=== PATIENT | female | born 1945 | race Caucasian/White ===

== ENCOUNTER 2021-01-31 12:23 | Emergency (ER) | payer MEDICARE, MEDICAID ==
[2021-01-31] MEDS ORDERED: Sodium Chloride 0.9% 10 ML Syringe FLUSH PRN (12:48)
--- NOTE | 2021-01-31 12:48 | EDM.PDOC ---
ED HPI GENERAL MEDICAL PROBLEM - General Chief Complaint: Cardiovascular Problem Stated Complaint: DEHYDRATED Time Seen by Provider: 01/31/21 12:35 Source of Information: Reports: Patient, Family, RN, RN Notes Reviewed History Limitations: Reports: No Limitations - History of Present Illness INITIAL COMMENTS - FREE TEXT/NARRATIVE: Pt presents to ER from home by POV with c/o dehydration, dizziness, and weakness. Pt states she had a special heart surgery on 01/21/21, but is unsure what the surgery was. Daughter believes the pain had an aneurysm repair. Pt states she had not had a BM for several days before she was discharge and she was nervous about going home without being able to go, but she was given some medicine for constipation and discharged home. Pt states they thought she might eat more if she was in her own home, but she hasn't been able to eat much at all. Pt states she has pain as expected from the surgery, but is has been slowly improving. She has only taken Tylenol for the pain. She denies shortness of breath. Pt has not noticed that her heart rate is fast. 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 Pt is unsure of her medical history, or current medications. Will obtain d/c summary from [facility]. Onset Date: 01/29/21 Duration: Constant, Getting Worse Location: Reports: Chest, Abdomen, Generalized Quality: Reports: Ache Severity: Mild Improves with: Reports: None Worsens with: Reports: None Associated Symptoms: Reports: No Other Symptoms Chest Pain Score (Numeric/FACES): 6 Past Medical History HEENT History: Reports: Impaired Vision Cardiovascular History: Reports: Aneurysm (Ascending aortic), Arrhythmia (Atypical Atrial Flutter), Heart Murmur (Aortic stenosis), Heart Valve Replacement (01/21/21), Hypertension Respiratory History: Reports: Other (See Below) (Right pleural effusion, Right lung nodule) Gastrointestinal History: Reports: Other (See Below) (Protein malnutrition) Musculoskeletal History: Reports: Back Pain, Chronic, Fracture (L4 compression fracture), RA, Other (See Below) (PMR) Hematologic History: Reports: Anemia Immunologic History: Reports: Other (See Below) (Rheumatoid arthritis) - Past Surgical History Cardiovascular Surgical History: Reports: AAA Repair (ascending, 01/21/21), Valve Replacement (Aortic 01/21/21) GI Surgical History: Reports: Cholecystectomy Female Surgical History: Reports: Hysterectomy Oncologic Surgical History: Reports: Lumpectomy Social & Family History - Family History Family Medical History: No Pertinent Family History - Tobacco Use Tobacco Use Status *Q: Former Tobacco User Tobacco Use Within Last Twelve Months: Cigarettes - Living Situation & Occupation Living situation: Reports: with Family Occupation: Retired ED ROS GENERAL - Review of Systems Review Of Systems: Comprehensive ROS is negative, except as noted in HPI. ED EXAM, GENERAL - Physical Exam Exam: See Below Exam Limited By: No Limitations General Appearance: Alert, No Apparent Distress, Anxious, Thin, Other (Chronically ill appearing) Eye Exam: Bilateral Eye: Normal Inspection Nose: Normal Inspection, No Blood Throat/Mouth: Normal Lips, Normal Voice, No Airway Compromise, Other (Dry oral mucosa) Head: Atraumatic, Normocephalic Neck: Normal Inspection, Supple, Non-Tender, Full Range of Motion Respiratory/Chest: No Respiratory Distress, No Accessory Muscle Use, Decreased Breath Sounds, Crackles, Other (Midline sugical incision with intact dermabond, no redness or signs of infection). No: Rales, Rhonchi, Wheezing Cardiovascular: Tachycardia (HR 180's to 190's) GI/Abdominal: Normal Bowel Sounds, Soft, Non-Tender Extremities: Normal Inspection, Normal Range of Motion, Non-Tender, No Pedal Edema Neurological: Alert, Oriented, CN II-XII Intact, No Motor/Sensory Deficits Psychiatric: Normal Mood Skin Exam: Warm, Dry, Intact, Normal Color #1 Interpretation EKG Date: 01/31/21 Time: 12:50 Rhythm: A-Fib (RVR) Rate (Beats/Min): 180 P-Wave: Absent QRS: Other (Narrow complex QRS) ST-T: Other (Nonspecific ST segment abnormalities) QT: Normal Comparison: NA - No Prior EKG #2 Interpretation EKG Date: 01/31/21 Time: 13:41 Rhythm: A-Flutter (vs A-fib) Rate (Beats/Min): 109 [place]: Normal P-Wave: Absent QRS: Other (LVH) ST-T: Other (nonspecific changes) QT: Normal Comparison: Change From Previous EKG Course - Vital Signs Last Recorded V/S: Last Vital Signs Temp 97.5 F 01/31/21 12:45 Pulse 180 H 01/31/21 12:45 Resp 16 01/31/21 12:45 BP 104/62 01/31/21 12:45 Pulse Ox - Orders/Labs/Meds Orders: Active Orders 24 hr Category Date Time Status EKG 12 Lead [EKG Documentation Completion] [RC] STAT Care 01/31/21 12:49 Active Peripheral IV Care [RC] . DIRECTED Care 01/31/21 12:49 Active CULTURE BLOOD [BC] Stat Lab 01/31/21 13:04 Received CULTURE BLOOD [BC] Stat Lab 01/31/21 13:08 Received UA RFX KVNG AND CULT IF INDIC [URIN] Stat Lab 01/31/21 12:49 Ordered Diltiazem 125 mg Med 01/31/21 13:15 Active Sodium Chloride 0.9% [Normal Saline] 100 ml IV TITRATE Metoprolol Tartrate [Lopressor] Med 01/31/21 14:19 Once 25 mg PO ONETIME ONE Sodium Chloride 0.9% [Normal Saline] 1,000 ml Med 01/31/21 13:45 Active IV ASDIRECTED Sodium Chloride 0.9% [Saline Flush] Med 01/31/21 12:48 Active 10 ml FLUSH ASDIRECTED PRN Blood Culture x2 Reflex Set [OM.PC] Stat Oth 01/31/21 12:48 Ordered Peripheral IV Insertion Adult [OM.PC] Stat Oth 01/31/21 12:49 Ordered Labs: Laboratory Tests 01/31/21 01/31/21 01/31/21 Range/Units 12:45 12:45 12:45 WBC 14.3 H (5.0-10.0) 10^3/uL RBC 3.87 L (4.2-5.4) 10^6/uL Hgb 12.1 (12.0-16.0) g/dL Hct 37.0 (37.0-47.0) % MCV 95.6 (80-100) fL MCH 31.3 (27.0-34.0) pg MCHC 32.7 L (33.0-35.0) g/dL Plt Count 269 (150-450) 10^3/uL Neut % (Auto) 84.5 H (42.2-75.2) % Lymph % (Auto) 7.6 L (20.5-50.1) % [place] % (Auto) 6.7 (2-8) % Eos % (Auto) 0.8 L (1.0-3.0) % Baso % (Auto) 0.4 (0.0-1.0) % PT 10.2 (9.0-12.0) SEC INR 1.1 (0.9-1.2) APTT 25.9 (22.0-34.0) SEC Sodium 136 (136-145) mmol/L Potassium 4.7 (3.5-5.1) mmol/L Chloride 97 L (98-107) mmol/L Carbon Dioxide 30 (21-32) mmol/L Anion Gap 13.7 H (7-13) mEq/L BUN 21 H (7-18) mg/dL Creatinine 1.32 H (0.55-1.02) mg/dL Est Cr Clr Drug Dosing TNP Estimated GFR (MDRD) 39 BUN/Creatinine Ratio 15.9 (No establ ref range) Glucose 145 H (74-99) mg/dL Lactic Acid (0.4-2.0) mmol/L Calcium 8.9 (8.5-10.1) mg/dL Magnesium 2.5 H (1.8-2.4) mg/dL Total Bilirubin 0.7 (0.2-1.0) mg/dL AST 25 (15-37) U/L ALT 45 (14-59) U/L Alkaline Phosphatase 107 (46-116) U/L Troponin I 0.064 H* (0.000-0.056) ng/mL B-Natriuretic Peptide 434 H (0-100) pg/ml Total Protein 7.2 (6.4-8.2) g/dL Albumin 3.1 L (3.4-5.0) g/dL Globulin 4.1 Albumin/Globulin Ratio 0.76 Lipase 144 (73-393) U/L TSH, Ultra Sensitive 1.37 (0.36-3.74) uIU/mL 01/31/21 Range/Units 13:04 WBC (5.0-10.0) 10^3/uL RBC (4.2-5.4) 10^6/uL Hgb (12.0-16.0) g/dL Hct (37.0-47.0) % MCV (80-100) fL MCH (27.0-34.0) pg MCHC (33.0-35.0) g/dL Plt Count (150-450) 10^3/uL Neut % (Auto) (42.2-75.2) % Lymph % (Auto) (20.5-50.1) % [place] % (Auto) (2-8) % Eos % (Auto) (1.0-3.0) % Baso % (Auto) (0.0-1.0) % PT (9.0-12.0) SEC INR (0.9-1.2) APTT (22.0-34.0) SEC Sodium (136-145) mmol/L Potassium (3.5-5.1) mmol/L Chloride (98-107) mmol/L Carbon Dioxide (21-32) mmol/L Anion Gap (7-13) mEq/L BUN (7-18) mg/dL Creatinine (0.55-1.02) mg/dL Est Cr Clr Drug Dosing Estimated GFR (MDRD) BUN/Creatinine Ratio (No establ ref range) Glucose (74-99) mg/dL Lactic Acid 1.3 (0.4-2.0) mmol/L Calcium (8.5-10.1) mg/dL Magnesium (1.8-2.4) mg/dL Total Bilirubin (0.2-1.0) mg/dL AST (15-37) U/L ALT (14-59) U/L Alkaline Phosphatase (46-116) U/L Troponin I (0.000-0.056) ng/mL B-Natriuretic Peptide (0-100) pg/ml Total Protein (6.4-8.2) g/dL Albumin (3.4-5.0) g/dL Globulin Albumin/Globulin Ratio Lipase (73-393) U/L TSH, Ultra Sensitive (0.36-3.74) uIU/mL Meds: D/C Diltiazem Drip: 1415HRS - Radiology Interpretation Free Text/Narrative:: Chest XR: large lung volumes, no consolidations or effusions, sternotomy wires, see Rad. report. - Re-Assessments/Exams Free Text/Narrative Re-Assessment/Exam: 01/31/21 14:22 Dr. Marc accepts the pt as a directed admit to [facility]. Dr. Marc asks that the Diltiazem drip be discontinues and the pt be given Metoprolol 25mg po x1 prior to transport. Departure - Departure Time of Disposition: 14:20 Disposition: DC/Tfer to Acute Hospital 02 Condition: Fair Clinical Impression: Atrial fibrillation with rapid ventricular response, H/O aortic valve replacement, History of AAA (abdominal aortic aneurysm) repair - Discharge Information *PRESCRIPTION DRUG MONITORING PROGRAM REVIEWED*: Not Applicable *COPY OF PRESCRIPTION DRUG MONITORING REPORT IN PATIENT NATHANAEL: Not Applicable Forms: ED Department Discharge, Interfacility Transfer [place] Sepsis Event Note (ED) - Focused Exam Vital Signs: Vital Signs Temp Pulse Resp BP 01/31/21 12:45 97.5 F 180 H 16 104/62 - My Orders Last 24 Hours: My Active Orders 01/31/21 12:48 Sodium Chloride 0.9% [Saline Flush] 10 ml FLUSH ASDIRECTED PRN Blood Culture x2 Reflex Set [OM.PC] Stat 01/31/21 12:49 EKG 12 Lead [EKG Documentation Completion] [RC] STAT Peripheral IV Care [RC] . DIRECTED UA RFX KVNG AND CULT IF INDIC [URIN] Stat Peripheral IV Insertion Adult [OM.PC] Stat 01/31/21 13:04 CULTURE BLOOD [BC] Stat 01/31/21 13:08 CULTURE BLOOD [BC] Stat 01/31/21 13:15 Diltiazem 125 mg Sodium Chloride 0.9% [Normal Saline] 100 ml IV TITRATE 01/31/21 13:45 Sodium Chloride 0.9% [Normal Saline] 1,000 ml IV ASDIRECTED 01/31/21 14:19 Metoprolol Tartrate [Lopressor] 25 mg PO ONETIME ONE - Assessment/Plan Last 24 Hours: My Active Orders 01/31/21 12:48 Sodium Chloride 0.9% [Saline Flush] 10 ml FLUSH ASDIRECTED PRN Blood Culture x2 Reflex Set [OM.PC] Stat 01/31/21 12:49 EKG 12 Lead [EKG Documentation Completion] [RC] STAT Peripheral IV Care [RC] . DIRECTED UA RFX KVNG AND CULT IF INDIC [URIN] Stat Peripheral IV Insertion Adult [OM.PC] Stat 01/31/21 13:04 CULTURE BLOOD [BC] Stat 01/31/21 13:08 CULTURE BLOOD [BC] Stat 01/31/21 13:15 Diltiazem 125 mg Sodium Chloride 0.9% [Normal Saline] 100 ml IV TITRATE 01/31/21 13:45 Sodium Chloride 0.9% [Normal Saline] 1,000 ml IV ASDIRECTED 01/31/21 14:19 Metoprolol Tartrate [Lopressor] 25 mg PO ONETIME ONE
[2021-01-31] MEDS ORDERED: Sodium Chloride 0.9% 1,000 ML IV ONE (12:50)
[2021-01-31] MEDS ORDERED: Diltiazem 25 MG/5 ML SDV IVPUSH ONE (12:53)
[2021-01-31] MEDS ORDERED: Diltiazem 25 MG/5 ML SDV ONE (12:55)
[2021-01-31] MEDS ORDERED: Diltiazem 125 MG in Sodium Chloride 0.9% 100 ML IV SCH (13:15)
[2021-01-31] MEDS ORDERED: Acetaminophen 325 MG Tab PO ONE (13:16)
[2021-01-31 13:19] LABS: PTT,PARTIAL THROMBOPLSTIN TIME 25.9 SEC (22.0-34.0)
[2021-01-31 13:22] LABS: ANION GAP 13.7 mEq/L (7-13); CHLORIDE,CL 97 mmol/L (98-107); SODIUM,NA 136 mmol/L (136-145)
[2021-01-31] MEDS ORDERED: Sodium Chloride 0.9% 1,000 ML IV SCH (13:45)
--- NOTE | 2021-01-31 13:57 | CR ---
EXAMINATION: Chest 1V Frontal SEX: Female AGE: 75 years CLINICAL HISTORY: 75-year-old female with history of "abdominal aortic aneurysm repair, evidence of cardiac surgery (sternotomy wires), and now new onset cardiac arrhythmia. No comparison films immediately available at this institution. Interpretation: Upright AP portable chest 1. External electronic device monitor leads. Sternotomy wires. 2. Mild cardiac prominence (cardiomegaly) but without associated pulmonary vascular congestion, cephalization of flow, alveolar edema or dependent pleural effusion. 3. No lung mass or hilar lymphadenopathy. 4. No focal lobar consolidation (alveolar infiltrate or atelectasis), "air bronchograms", or peripheral "groundglass" interstitial lung densities. 5. No pneumothorax or pneumomediastinum. CONCLUSION: Slightly enlarged heart. Evidence of previous chest surgery. No signs of heart failure, lung neoplasm or pneumonia.
[2021-01-31] MEDS ORDERED: Metoprolol Tartrate 25 MG Tab PO ONE (14:19)
== END 2021-01-31 15:17 ==
LOC: DL.ED 12:23
DX: I48.91 Unspecified atrial fibrillation (principal); I10 Essential (primary) hypertension; Z95.2 Presence of prosthetic heart valve; Z98.890 Other specified postprocedural states; Z87.891 Personal history of nicotine dependence
CPT/HCPCS: 36415; 71045; 80053; 81001; 83605; 83690; 83735; 83880; 84443; 84484; 85025; 85610; 85730; 87040; 87086; 87088; 87186; 93005; 96365; 99285; A9270; J3490; J7030

== ENCOUNTER 2021-03-06 23:08 | Emergency (ER) | payer MEDICARE, MEDICAID ==
--- NOTE | 2021-03-07 00:23 | EDM.PDOC ---
ED HPI GENERAL MEDICAL PROBLEM - General Chief Complaint: Cardiovascular Problem Stated Complaint: HIGH BLOOD PRESSURE Time Seen by Provider: 03/06/21 23:50 Source of Information: Reports: Patient History Limitations: Reports: No Limitations - History of Present Illness INITIAL COMMENTS - FREE TEXT/NARRATIVE: This 76 yo female patient was brought to the ED by her daughter in law due to having an episode of vertigo while at home. The patient reports she was watching TV when she noticed the vertigo to the point that the patient reports she felt like the "room was going to start spinning". The patient reports she did have a similar episode years ago and was given some medications to stop the spinning. The patient reports she gets very nervous when things like that happen. The patient reports she called her daughter in law, who came over and took her blood pressure (which was high). The patient's daughter in law took her blood pressure several times and got high readings each time causing her to bring the patient to the ED. The patient did have a valve repair and a AAA repair several weeks ago and has been feeling well since that time. The patient denies any recent illnesses, injuries or falls. The patient reports she does have an appointment with Dr. Carcamo on 03/14/21 as a follow-up to her recent hospitalization. The patient denies any dizziness at this time. Onset: Today Duration: Minutes: Location: Reports: Generalized Quality: Reports: Other Severity: Moderate Improves with: Reports: None Worsens with: Reports: None Context: Reports: Other Associated Symptoms: Reports: Other - Related Data Allergies Allergy/AdvReac Type Severity Reaction Status Date / Time Cephalosporins Allergy Rash Verified 03/06/21 23:23 diazepam [From Valium] Allergy Cannot Verified 03/06/21 23:23 Remember latex Allergy Rash Verified 03/06/21 23:23 morphine Allergy Cannot Verified 03/06/21 23:23 Remember nickel Allergy Rash Verified 03/06/21 23:23 Penicillins Allergy Hives Verified 03/06/21 23:23 promethazine [From Phenergan] Allergy Cannot Verified 03/06/21 23:23 Remember shellfish derived Allergy Rash Verified 03/06/21 23:23 Home Meds: Home Meds Amiodarone [Cordarone] 200 mg PO DAILY 03/06/21 [History] Apixaban [Eliquis] 5 mg PO BID 03/06/21 [History] Aspirin [Adult Aspirin Regimen] 81 mg PO DAILY 03/06/21 [History] Cholecalciferol (Vitamin D3) [Vitamin D3] 1,000 unit PO DAILY 03/06/21 [History] Furosemide 20 mg PO DAILY PRN 03/06/21 [History] Metoprolol Succinate [Toprol XL] 25 mg PO DAILY 03/06/21 [History] predniSONE [Prednisone] 4 mg PO DAILY 03/06/21 [History] Past Medical History HEENT History: Reports: Impaired Vision Cardiovascular History: Reports: Aneurysm, Arrhythmia, Heart Murmur, Heart Valve Replacement, Hypertension Other Cardiovascular History: ascending aortic aneurysm, aorti valve insufficiency Respiratory History: Reports: Other (See Below) Other Respiratory History: pleural effusions to right lung and nodule on right lung Gastrointestinal History: Reports: Other (See Below) Other Gastrointestinal History: severe protein calorie malnutrition Genitourinary History: Reports: None PRODUCTION SUPPORT DEVELOPER History: Reports: None Musculoskeletal History: Reports: Back Pain, Chronic, Fracture, RA, Other (See Below) Neurological History: Reports: Other (See Below) Other Neuro History: low back pain Psychiatric History: Reports: None Endocrine/Metabolic History: Reports: None Hematologic History: Reports: Anemia Immunologic History: Reports: Other (See Below) (Rheumatoid arthritis) Oncologic (Cancer) History: Reports: None Dermatologic History: Reports: None - Infectious Disease History Infectious Disease History: Reports: Measles, Other (See Below) Other Infectious Disease History: hepatitis - Past Surgical History Head Surgeries/Procedures: Reports: None Cardiovascular Surgical History: Reports: AAA Repair, Coronary Artery Bypass, Valve Replacement GI Surgical History: Reports: Cholecystectomy Female Surgical History: Reports: Hysterectomy Oncologic Surgical History: Reports: Lumpectomy Social & Family History - Family History Family Medical History: No Pertinent Family History - Tobacco Use Tobacco Use Status *Q: Former Tobacco User Used Tobacco, but Quit: Yes Month/Year Tobacco Last Used: oct 2020 Second Hand Smoke Exposure: No - Recreational Drug Use Recreational Drug Use: No - Living Situation & Occupation Living situation: Reports: with Family Occupation: Retired ED ROS GENERAL - Review of Systems Review Of Systems: Comprehensive ROS is negative, except as noted in HPI. ED EXAM, GENERAL - Physical Exam Exam: See Below Exam Limited By: No Limitations General Appearance: Alert, WD/WN, Anxious, Mild Distress Eye Exam: Bilateral Eye: EOMI, Normal Inspection, PERRL Ears: Normal External Exam, Normal Canal, Hearing Grossly Normal, Normal TMs Nose: Normal Inspection, Normal Mucosa, No Blood Throat/Mouth: Normal Inspection, Normal Lips, Normal Teeth, Normal Gums, Normal Oropharynx, Normal Voice, No Airway Compromise Head: Atraumatic, Normocephalic Neck: Normal Inspection, Supple, Non-Tender, Full Range of Motion Respiratory/Chest: No Respiratory Distress, Lungs Clear, Normal Breath Sounds, No Accessory Muscle Use, Chest Non-Tender Cardiovascular: Normal Peripheral Pulses, Regular Rate, Rhythm, No Edema, No Gallop, No JVD, No Murmur, No Rub GI/Abdominal: Normal Bowel Sounds, Soft, Non-Tender, No Organomegaly, No Distention, No Abnormal Bruit, No Mass (Female) Exam: Deferred Rectal (Female) Exam: Deferred Back Exam: Normal Inspection, Full Range of Motion, NT Extremities: Normal Inspection, Normal Range of Motion, Non-Tender, Normal Capillary Refill, No Pedal Edema Neurological: Alert, Oriented, CN II-XII Intact, Normal Cognition, Normal Gait, Normal Reflexes, No Motor/Sensory Deficits Psychiatric: Normal Affect, Normal Mood Skin Exam: Warm, Dry, Intact, Normal Color, No Rash Lymphatic: No Adenopathy Course - Vital Signs Last Recorded V/S: Last Vital Signs Temp 37.2 C 03/06/21 23:14 Pulse 66 03/06/21 23:14 Resp 18 03/06/21 23:14 BP 179/68 H 03/06/21 23:14 Pulse Ox 97 03/06/21 23:14 - Orders/Labs/Meds Orders: Active Orders 24 hr Category Date Time Status EKG Documentation Completion [RC] STAT Care 03/06/21 23:37 Active Labs: Laboratory Tests 03/06/21 03/06/21 Range/Units 23:48 23:48 WBC 6.5 (5.0-10.0) 10^3/uL RBC 3.32 L (4.2-5.4) 10^6/uL Hgb 10.3 L D (12.0-16.0) g/dL Hct 33.9 L (37.0-47.0) % MCV 102.1 H D (80-100) fL MCH 31.0 (27.0-34.0) pg MCHC 30.4 L (33.0-35.0) g/dL Plt Count 256 (150-450) 10^3/uL Neut % (Auto) 62.5 (42.2-75.2) % Lymph % (Auto) 27.2 (20.5-50.1) % [place] % (Auto) 8.3 H (2-8) % Eos % (Auto) 1.7 (1.0-3.0) % Baso % (Auto) 0.3 (0.0-1.0) % Sodium 141 (136-145) mmol/L Potassium 4.0 (3.5-5.1) mmol/L Chloride 104 (98-107) mmol/L Carbon Dioxide 30 (21-32) mmol/L Anion Gap 11.0 (7-13) mEq/L BUN 18 (7-18) mg/dL Creatinine 0.94 (0.55-1.02) mg/dL Est Cr Clr Drug Dosing 41.01 mL/min Estimated GFR (MDRD) 58 BUN/Creatinine Ratio 19.1 (No establ ref range) Glucose 134 H (70-99) mg/dL Calcium 8.1 L (8.5-10.1) mg/dL Total Bilirubin 0.4 (0.2-1.0) mg/dL AST 14 L (15-37) U/L ALT 26 (14-59) U/L Alkaline Phosphatase 101 (46-116) U/L Troponin I < 0.017 (0.000-0.056) ng/mL B-Natriuretic Peptide 792 H (0-100) pg/ml Total Protein 6.5 (6.4-8.2) g/dL Albumin 2.7 L (3.4-5.0) g/dL Globulin 3.8 Albumin/Globulin Ratio 0.71 Departure - Departure Time of Disposition: 00:48 Disposition: Home, Self-Care 01 Condition: Fair Clinical Impression: Anxiety about health Forms: ED Department Discharge Care Plan Goals: The patient was advised of the examination, lab and EKG results during the visit. The patient was encouraged to continue to take her medications as prescribed. If the patient has any additional symptoms or concerns, the patient should either return to the emergency department or visit her primary care facility. Sepsis Event Note (ED) - Evaluation Sepsis Screening Result: No Definite Risk - Focused Exam Vital Signs: Vital Signs Temp Pulse Resp BP Pulse Ox 04/14/21 23:14 37.2 C 66 18 179/68 H 97 - My Orders Last 24 Hours: My Active Orders 03/06/21 23:37 EKG Documentation Completion [RC] STAT - Assessment/Plan Last 24 Hours: My Active Orders 03/06/21 23:37 EKG Documentation Completion [RC] STAT
[2021-03-07 00:34] LABS: CHLORIDE,CL 104 mmol/L (98-107); SODIUM,NA 141 mmol/L (136-145)
== END 2021-03-07 00:58 | disposition home or self-care (01) ==
LOC: DL.ED 23:08
DX: F41.9 Anxiety disorder, unspecified (principal); Z88.1 Allergy status to other antibiotic agents; Z88.8 Allergy status to other drugs, medicaments and biological substances; Z91.040 Latex allergy status; Z88.5 Allergy status to narcotic agent; Z91.048 Other nonmedicinal substance allergy status; Z88.0 Allergy status to penicillin; Z91.013 Allergy to seafood; Z79.01 Long term (current) use of anticoagulants; Z79.82 Long term (current) use of aspirin; Z79.899 Other long term (current) drug therapy; Z87.891 Personal history of nicotine dependence
CPT/HCPCS: 36415; 80053; 83880; 84484; 85025; 93005; 99284-25

== ENCOUNTER 2021-05-28 23:23 | Emergency (ER) | payer MEDICARE, MEDICAID ==
[2021-05-28] MEDS ORDERED: Ondansetron 4 MG Tab.DIS PO ONE (23:24)
[2021-05-28] MEDS ORDERED: Ondansetron 4 MG/2 ML SDV IV ONE (23:32)
[2021-05-28] MEDS ORDERED: Sodium Chloride 0.9% 1,000 ML IV ONE (23:32)
--- NOTE | 2021-05-28 23:47 | EDM.PDOC ---
ED HPI GENERAL MEDICAL PROBLEM - General Chief Complaint: Gastrointestinal Problem Stated Complaint: VOMITING,FATIGUE,TROUBLE WALKING, WEAKNESS Time Seen by Provider: 05/28/21 23:47 Source of Information: Reports: Patient, Family, RN, RN Notes Reviewed - History of Present Illness INITIAL COMMENTS - FREE TEXT/NARRATIVE: Patient is a 76-year-old female who presents to ER with complaint of nausea, vomiting, diarrhea. Upon arrival to the ER patient has continuous vomiting. Patient states she has been nauseated all day, and approximately 3 to 4 hours prior to arrival began vomiting. She states she did have diarrhea twice, and vomited several times. Patient states she feels very weak, and was unable to get to the bathroom in time when she had diarrhea. Patient states history of aortic valve replacement in January, history of atrial fib, history of AAA repair. States history of CHF, which she thinks has somewhat resolved. Denies any other health history other than hypertension. Patient admits to chills, denies fever. Denies chest pains or shortness of breath. States she uses a walker at home. Patient is accompanied by her daughter. Onset: Today Abdomen Pain Score (Numeric/FACES): 8 - Related Data Allergies Allergy/AdvReac Type Severity Reaction Status Date / Time Cephalosporins Allergy Rash Verified 03/06/21 23:23 diazepam [From Valium] Allergy Cannot Verified 03/06/21 23:23 Remember latex Allergy Rash Verified 03/06/21 23:23 morphine Allergy Cannot Verified 03/06/21 23:23 Remember nickel Allergy Rash Verified 03/06/21 23:23 Penicillins Allergy Hives Verified 03/06/21 23:23 promethazine [From Phenergan] Allergy Cannot Verified 03/06/21 23:23 Remember shellfish derived Allergy Rash Verified 03/06/21 23:23 Home Meds: Home Meds Apixaban [Eliquis] 5 mg PO BID 03/06/21 [History] Aspirin [Adult Aspirin Regimen] 81 mg PO DAILY 03/06/21 [History] Cholecalciferol (Vitamin D3) [Vitamin D3] 1,000 unit PO DAILY 03/06/21 [History] Metoprolol Succinate [Toprol XL] 37.5 mg PO DAILY 03/06/21 [History] predniSONE [Prednisone] 4 mg PO DAILY 03/06/21 [History] Cholecalciferol (Vitamin D3) [Vitamin D] 1 cap 05/28/21 [History] Past Medical History HEENT History: Reports: Impaired Vision Cardiovascular History: Reports: Aneurysm, Arrhythmia, Heart Murmur, Heart Valve Replacement, Hypertension Other Cardiovascular History: ascending aortic aneurysm, aorti valve insufficiency Respiratory History: Reports: Other (See Below) Other Respiratory History: pleural effusions to right lung and nodule on right lung Gastrointestinal History: Reports: Other (See Below) Other Gastrointestinal History: severe protein calorie malnutrition Genitourinary History: Reports: None ROUTER SETTER History: Reports: None Musculoskeletal History: Reports: Back Pain, Chronic, Fracture, RA, Other (See Below) Neurological History: Reports: Other (See Below) Other Neuro History: low back pain Psychiatric History: Reports: None Endocrine/Metabolic History: Reports: None Hematologic History: Reports: Anemia Immunologic History: Reports: Other (See Below) (Rheumatoid arthritis) Oncologic (Cancer) History: Reports: None Dermatologic History: Reports: None - Infectious Disease History Infectious Disease History: Reports: Measles, Other (See Below) Other Infectious Disease History: hepatitis - Past Surgical History Head Surgeries/Procedures: Reports: None Cardiovascular Surgical History: Reports: AAA Repair, Coronary Artery Bypass, Valve Replacement GI Surgical History: Reports: Cholecystectomy Female Surgical History: Reports: Hysterectomy Oncologic Surgical History: Reports: Lumpectomy Social & Family History - Family History Family Medical History: No Pertinent Family History - Living Situation & Occupation Living situation: Reports: with Family Occupation: Retired ED ROS GENERAL - Review of Systems Review Of Systems: Comprehensive ROS is negative, except as noted in HPI. ED EXAM, GENERAL - Physical Exam Exam: See Below Exam Limited By: No Limitations General Appearance: Alert, Moderate Distress (Continuous vomiting, shaking chills), Thin Eye Exam: Bilateral Eye: EOMI, Normal Inspection Ears: Normal External Exam, Hearing Grossly Normal Nose: Normal Inspection Throat/Mouth: Normal Inspection, Normal Voice, No Airway Compromise Head: Atraumatic, Normocephalic Neck: Normal Inspection, Supple, Non-Tender, Full Range of Motion Respiratory/Chest: No Respiratory Distress, Lungs Clear, Normal Breath Sounds, No Accessory Muscle Use, Chest Non-Tender, Decreased Breath Sounds Cardiovascular: Normal Peripheral Pulses, Regular Rate, Rhythm, No Edema, No Gallop, No JVD, No Murmur, No Rub Peripheral Pulses: 2+: Radial (L), Radial (R) GI/Abdominal: Normal Bowel Sounds, Soft, Tender (throughout) (Female) Exam: Deferred Rectal (Female) Exam: Deferred Back Exam: Normal Inspection, Full Range of Motion, NT Extremities: Normal Inspection, Normal Range of Motion, Non-Tender, Normal Capillary Refill, No Pedal Edema Neurological: Alert, Oriented, Normal Cognition Psychiatric: Normal Affect, Normal Mood Skin Exam: Warm, Dry, Intact, No Rash, Pallor Lymphatic: No Adenopathy #1 Interpretation EKG Date: 05/28/21 Time: 23:40 Rhythm: NSR Rate (Beats/Min): 80 [place]: Normal P-Wave: Present QRS: Normal ST-T: Normal QT: Normal Comparison: No Change EKG Interpretation Comments: Patient having shaking chills, will repeat EKG when patient chills have calmed. #2 Interpretation EKG Date: 05/29/21 Time: 00:56 Rhythm: NSR Rate (Beats/Min): 79 [place]: Normal P-Wave: Present QRS: Normal ST-T: Normal QT: Normal Comparison: No Change Course - Vital Signs Last Recorded V/S: Last Vital Signs Temp 99.2 F 05/28/21 23:46 Pulse 80 05/28/21 23:46 Resp 16 05/28/21 23:46 BP 113/57 L 05/28/21 23:46 Pulse Ox 93 L 05/28/21 23:46 - Orders/Labs/Meds Orders: Active Orders 24 hr Category Date Time Status EKG Documentation Completion [RC] STAT Care 05/28/21 23:26 Active CULTURE BLOOD [BC] Stat Lab 05/28/21 23:30 Ordered CULTURE BLOOD [BC] Stat Lab 05/28/21 23:36 Received CULTURE URINE [RM] Stat Lab 05/29/21 02:32 Received LACTIC ACID [CHEM] Routine Lab 05/29/21 02:11 Ordered Sodium Chloride 0.9% [Normal Saline] 1,000 ml Med 05/29/21 00:55 Active IV CONTINUOUS Blood Culture x2 Reflex Set [OM.PC] Stat Oth 05/28/21 23:27 Ordered Medication Orders Sodium Chloride (Normal Saline) 1,000 mls @ 125 mls/hr IV CONTINUOUS ONE Stop: 05/29/21 08:54 Last Admin: 05/29/21 01:06 Dose: 125 mls/hr Documented by: LORA Labs: Laboratory Tests 05/28/21 05/28/21 05/28/21 Range/Units 23:36 23:36 23:36 WBC 12.9 H (5.0-10.0) 10^3/uL RBC 4.73 (4.2-5.4) 10^6/uL Hgb 14.0 D (12.0-16.0) g/dL Hct 45.8 (37.0-47.0) % MCV 96.8 D (80-100) fL MCH 29.6 (27.0-34.0) pg MCHC 30.6 L (33.0-35.0) g/dL Plt Count 344 D (150-450) 10^3/uL Neut % (Auto) 73.4 (42.2-75.2) % Lymph % (Auto) 20.6 (20.5-50.1) % [place] % (Auto) 4.9 (2-8) % Eos % (Auto) 1.0 (1.0-3.0) % Baso % (Auto) 0.1 (0.0-1.0) % Add Manual Diff Yes Neutrophils % (Manual) 66 (42-75) % Band Neutrophils % 9 % Lymphocytes % (Manual) 18 L (20-50) % Monocytes % (Manual) 5 (2-8) % Eosinophils % (Manual) 2 (1-3) % PT 10.5 (9.0-12.0) SEC INR 1.0 (0.9-1.2) Sodium 141 (136-145) mmol/L Potassium 4.2 (3.5-5.1) mmol/L Chloride 104 (98-107) mmol/L Carbon Dioxide 28 (21-32) mmol/L Anion Gap 13.2 H (7-13) mEq/L BUN 25 H (7-18) mg/dL Creatinine 1.21 H (0.55-1.02) mg/dL Est Cr Clr Drug Dosing 30.18 mL/min Estimated GFR (MDRD) 43 BUN/Creatinine Ratio 20.7 (No establ ref range) Glucose 147 H (70-99) mg/dL Lactic Acid (0.4-2.0) mmol/L Calcium 9.1 (8.5-10.1) mg/dL Magnesium 2.1 (1.8-2.4) mg/dL Total Bilirubin 0.4 (0.2-1.0) mg/dL AST 53 H (15-37) U/L ALT 59 (14-59) U/L Alkaline Phosphatase 184 H (46-116) U/L Troponin I High Sens 10 (<=51) pg/mL B-Natriuretic Peptide (0-100) pg/ml Total Protein 8.5 H (6.4-8.2) g/dL Albumin 3.3 L (3.4-5.0) g/dL Globulin 5.2 Albumin/Globulin Ratio 0.63 Amylase 87 (25-115) U/L Lipase 148 (73-393) U/L Urine Color (YELLOW) Urine Appearance (CLEAR) Urine pH (5.0-9.0) Ur Specific [place] (1.005-1.030) Urine Protein (NEGATIVE) Urine Glucose (UA) (NEGATIVE) Urine Ketones (NEGATIVE) Urine Occult Blood (NEGATIVE) Urine Nitrite (NEGATIVE) Urine Bilirubin (NEGATIVE) Urine Urobilinogen (0.2-1.0) mg/dL Ur Leukocyte Esterase (NEGATIVE) Urine RBC /HPF Urine WBC (0-5/HPF) /HPF Ur Epithelial Cells (NOT SEEN) /HPF Amorphous Sediment (NOT SEEN) /HPF Urine Bacteria (0-FEW/HPF) /HPF Urine Mucus (NOT SEEN) /LPF Ethyl Alcohol < 3 (0) mg/dL Influenza Type A RNA (NEGATIVE) Influenza Type B RNA (NEGATIVE) SARS-CoV-2 RNA (MATILDE) (NEGATIVE) 05/28/21 05/28/21 05/28/21 Range/Units 23:36 23:36 23:40 WBC (5.0-10.0) 10^3/uL RBC (4.2-5.4) 10^6/uL Hgb (12.0-16.0) g/dL Hct (37.0-47.0) % MCV (80-100) fL MCH (27.0-34.0) pg MCHC (33.0-35.0) g/dL Plt Count (150-450) 10^3/uL Neut % (Auto) (42.2-75.2) % Lymph % (Auto) (20.5-50.1) % [place] % (Auto) (2-8) % Eos % (Auto) (1.0-3.0) % Baso % (Auto) (0.0-1.0) % Add Manual Diff Neutrophils % (Manual) (42-75) % Band Neutrophils % % Lymphocytes % (Manual) (20-50) % Monocytes % (Manual) (2-8) % Eosinophils % (Manual) (1-3) % PT (9.0-12.0) SEC INR (0.9-1.2) Sodium (136-145) mmol/L Potassium (3.5-5.1) mmol/L Chloride (98-107) mmol/L Carbon Dioxide (21-32) mmol/L Anion Gap (7-13) mEq/L BUN (7-18) mg/dL Creatinine (0.55-1.02) mg/dL Est Cr Clr Drug Dosing mL/min Estimated GFR (MDRD) BUN/Creatinine Ratio (No establ ref range) Glucose (70-99) mg/dL Lactic Acid 2.2 H* (0.4-2.0) mmol/L Calcium (8.5-10.1) mg/dL Magnesium (1.8-2.4) mg/dL Total Bilirubin (0.2-1.0) mg/dL AST (15-37) U/L ALT (14-59) U/L Alkaline Phosphatase (46-116) U/L Troponin I High Sens (<=51) pg/mL B-Natriuretic Peptide 226 H (0-100) pg/ml Total Protein (6.4-8.2) g/dL Albumin (3.4-5.0) g/dL Globulin Albumin/Globulin Ratio Amylase (25-115) U/L Lipase (73-393) U/L Urine Color (YELLOW) Urine Appearance (CLEAR) Urine pH (5.0-9.0) Ur Specific [place] (1.005-1.030) Urine Protein (NEGATIVE) Urine Glucose (UA) (NEGATIVE) Urine Ketones (NEGATIVE) Urine Occult Blood (NEGATIVE) Urine Nitrite (NEGATIVE) Urine Bilirubin (NEGATIVE) Urine Urobilinogen (0.2-1.0) mg/dL Ur Leukocyte Esterase (NEGATIVE) Urine RBC /HPF Urine WBC (0-5/HPF) /HPF Ur Epithelial Cells (NOT SEEN) /HPF Amorphous Sediment (NOT SEEN) /HPF Urine Bacteria (0-FEW/HPF) /HPF Urine Mucus (NOT SEEN) /LPF Ethyl Alcohol (0) mg/dL Influenza Type A RNA Negative (NEGATIVE) Influenza Type B RNA Negative (NEGATIVE) SARS-CoV-2 RNA (MATILDE) Negative (NEGATIVE) 05/29/21 Range/Units 02:32 WBC (5.0-10.0) 10^3/uL RBC (4.2-5.4) 10^6/uL Hgb (12.0-16.0) g/dL Hct (37.0-47.0) % MCV (80-100) fL MCH (27.0-34.0) pg MCHC (33.0-35.0) g/dL Plt Count (150-450) 10^3/uL Neut % (Auto) (42.2-75.2) % Lymph % (Auto) (20.5-50.1) % [place] % (Auto) (2-8) % Eos % (Auto) (1.0-3.0) % Baso % (Auto) (0.0-1.0) % Add Manual Diff Neutrophils % (Manual) (42-75) % Band Neutrophils % % Lymphocytes % (Manual) (20-50) % Monocytes % (Manual) (2-8) % Eosinophils % (Manual) (1-3) % PT (9.0-12.0) SEC INR (0.9-1.2) Sodium (136-145) mmol/L Potassium (3.5-5.1) mmol/L Chloride (98-107) mmol/L Carbon Dioxide (21-32) mmol/L Anion Gap (7-13) mEq/L BUN (7-18) mg/dL Creatinine (0.55-1.02) mg/dL Est Cr Clr Drug Dosing mL/min Estimated GFR (MDRD) BUN/Creatinine Ratio (No establ ref range) Glucose (70-99) mg/dL Lactic Acid (0.4-2.0) mmol/L Calcium (8.5-10.1) mg/dL Magnesium (1.8-2.4) mg/dL Total Bilirubin (0.2-1.0) mg/dL AST (15-37) U/L ALT (14-59) U/L Alkaline Phosphatase (46-116) U/L Troponin I High Sens (<=51) pg/mL B-Natriuretic Peptide (0-100) pg/ml Total Protein (6.4-8.2) g/dL Albumin (3.4-5.0) g/dL Globulin Albumin/Globulin Ratio Amylase (25-115) U/L Lipase (73-393) U/L Urine Color Yellow (YELLOW) Urine Appearance Slightly cloudy (CLEAR) Urine pH 5.5 (5.0-9.0) Ur Specific [place] 1.020 (1.005-1.030) Urine Protein Negative (NEGATIVE) Urine Glucose (UA) Negative (NEGATIVE) Urine Ketones Negative (NEGATIVE) Urine Occult Blood Trace-intact H (NEGATIVE) Urine Nitrite Negative (NEGATIVE) Urine Bilirubin Negative (NEGATIVE) Urine Urobilinogen 0.2 (0.2-1.0) mg/dL Ur Leukocyte Esterase Small H (NEGATIVE) Urine RBC 10-20 H /HPF Urine WBC 5-10 H (0-5/HPF) /HPF Ur Epithelial Cells Few (NOT SEEN) /HPF Amorphous Sediment Rare (NOT SEEN) /HPF Urine Bacteria Few (0-FEW/HPF) /HPF Urine Mucus Few H (NOT SEEN) /LPF Ethyl Alcohol (0) mg/dL Influenza Type A RNA (NEGATIVE) Influenza Type B RNA (NEGATIVE) SARS-CoV-2 RNA (MATILDE) (NEGATIVE) Meds: Medications Generic Name Dose Route Start Last Admin Trade Name Nidia PRN Reason Stop Dose Admin Sodium Chloride 1,000 mls @ 125 mls/hr 05/29/21 00:55 05/29/21 01:06 Normal Saline IV 05/29/21 08:54 125 mls/hr CONTINUOUS ONE Administration Discontinued Medications Generic Name Dose Route Start Last Admin Trade Name Nidia PRN Reason Stop Dose Admin Fentanyl 50 mcg 05/29/21 00:01 05/29/21 00:07 Fentanyl 100 Mcg/2 Ml Sdv IVPUSH 05/29/21 00:02 50 mcg ONETIME ONE Administration Sodium Chloride 1,000 mls @ 999 mls/hr 05/28/21 23:32 05/28/21 23:38 Normal Saline IV 05/29/21 00:32 999 mls/hr .BOLUS ONE Administration Iopamidol 100 ml 05/29/21 00:11 05/29/21 00:25 Iopamidol 612 Mg/Ml 100 Ml Bottle IVPUSH 05/29/21 00:12 75 ml ONETIME ONE Administration Ondansetron HCl 4 mg 05/28/21 23:32 05/28/21 23:38 Ondansetron 4 Mg/2 Ml Sdv IV 05/28/21 23:33 4 mg ONETIME ONE Administration - Radiology Interpretation Free Text/Narrative:: Abdomen/Pelvis CT with contrast: PROCEDURE INFORMATION: Exam: CT Abdomen And Pelvis With Contrast Exam date and time: 05/29/2021 12:21 AM Age: 76 years old Clinical indication: Nausea and vomiting; Prior surgery; Surgery date: 6+ months; Surgery type: Gallbladder removed, appendix removed, hysterectomy; Patient HX: Chf, aaa; Additional info: Abd pain, vomiting TECHNIQUE: Imaging protocol: Computed tomography of the abdomen and pelvis with contrast. Radiation optimization: All CT scans at this facility use at least one of these dose optimization techniques: automated exposure control; mA and/or kV adjustment per patient size (includes targeted exams where dose is matched to clinical indication); or iterative reconstruction. Contrast material: ISOVUE 300; Contrast volume: 75 ml; Contrast route: INT RAVENOUS (IV); COMPARISON: No relevant prior studies available. FINDINGS: Liver: Normal. No mass. Gallbladder and bile ducts: The gallbladder has been removed. The common bile duct is mildly enlarged measuring up to 1.2 cm. This is likely due to prior cholecystectomy. No definite stones are identified. Pancreas: Normal. No ductal dilation. Spleen: Normal. No splenomegaly. Adrenal glands: Normal. No mass. Kidneys and ureters: Normal. No hydronephrosis. Stomach and bowel: Unremarkable. No obstruction. No mucosal thickening. Appendix: No evidence of appendicitis. Intraperitoneal space: Unremarkable. No free air. No significant fluid collection. Vasculature: The descending thoracic aorta is enlarged above the diaphragmatic hiatus. The descending thoracic aorta measures approximately 4.5 x 4.4 cm and demonstrates some soft thrombus. Finding is compatible with a descending thoracic aortic aneurysm. Consider CT scan of the chest for more definitive characterization. Lymph nodes: Unremarkable. No enlarged lymph nodes. Urinary bladder: Unremarkable as visualized. Reproductive: Unremarkable as visualized. Bones/joints: Moderate grade degenerative changes are present within the lumbar spine. Mild compression fracture L1, L3 and L4 present. These are age indeterminate. Correlation with any prior imaging studies would be useful. If unavailable and there is sufficient back pain, could consider MRI for further evaluation. Soft tissues: Unremarkable. IMPRESSION: 1. Descending thoracic aortic aneurysm incompletely characterized on this CT scan of the abdomen pelvis. 2. Multiple mild lumbar compression fractures. Comparison studies are not currently available. Consider MRI if indicated. 3. Status post cholecystectomy with enlargement the common bile duct which is likely due to prior removal of the gallbladder. Please see above. Thank you for allowing us to participate in the care of your patient. Dictated and Authenticated by: Nestor Cole MD 05/29/2021 1:52 AM Central Time ([place] & [place]) See rad report Departure - Departure Time of Disposition: 03:03 Disposition: Home, Self-Care 01 Condition: Fair Clinical Impression: Gastroenteritis - Discharge Information *PRESCRIPTION DRUG MONITORING PROGRAM REVIEWED*: No *COPY OF PRESCRIPTION DRUG MONITORING REPORT IN PATIENT NATHANAEL: No Instructions: Viral Gastroenteritis, Adult, [id number], Food Choices to Help Relieve Diarrhea, Adult, Nausea and Vomiting, Adult, [id number], Abdominal Pain, Adult, [id number], Diarrhea, Adult, [id number] Forms: ED Department Discharge Additional Instructions: Continue trying small sips of fluids to stay hydrated When able to try food again begin with the brat diet, bananas, rice, applesauce, toast May use Imodium [id number] as directed for diarrhea Rest Follow-up with your primary care provider in the clinic Return to ER with any worsening of symptoms RX: Macrobid 100mg orally twice daily for 5 days (take with food if this upsets your stomach) RX: Zofran (odansetron) 4mg orally every 6-8 hours as needed for pain Sepsis Event Note (ED) - Focused Exam Vital Signs: Vital Signs Temp Pulse Resp BP Pulse Ox 05/28/21 23:46 99.2 F 80 16 113/57 L 93 L - My Orders Last 24 Hours: My Active Orders 05/28/21 23:26 EKG Documentation Completion [RC] STAT 05/28/21 23:27 Blood Culture x2 Reflex Set [OM.PC] Stat 05/28/21 23:30 CULTURE BLOOD [BC] Stat 05/28/21 23:36 CULTURE BLOOD [BC] Stat 05/29/21 00:55 Sodium Chloride 0.9% [Normal Saline] 1,000 ml IV CONTINUOUS 05/29/21 02:11 LACTIC ACID [CHEM] Routine 05/29/21 02:32 CULTURE URINE [RM] Stat - Assessment/Plan Last 24 Hours: My Active Orders 05/28/21 23:26 EKG Documentation Completion [RC] STAT 05/28/21 23:27 Blood Culture x2 Reflex Set [OM.PC] Stat 05/28/21 23:30 CULTURE BLOOD [BC] Stat 05/28/21 23:36 CULTURE BLOOD [BC] Stat 05/29/21 00:55 Sodium Chloride 0.9% [Normal Saline] 1,000 ml IV CONTINUOUS 05/29/21 02:11 LACTIC ACID [CHEM] Routine 05/29/21 02:32 CULTURE URINE [RM] Stat
[2021-05-29] MEDS ORDERED: fentaNYL 100 MCG/2 ML SDV IVPUSH ONE (00:01)
[2021-05-29 00:06] LABS: ANION GAP 13.2 mEq/L (7-13); CHLORIDE,CL 104 mmol/L (98-107); SODIUM,NA 141 mmol/L (136-145)
[2021-05-29] MEDS ORDERED: Iopamidol 612 MG/ML 100 ML Bottle IVPUSH ONE (00:11)
[2021-05-29 00:26] LABS: CORONAVIRUS COVID-19 NAA NEGATIVE (NEGATIVE)
[2021-05-29] MEDS ORDERED: Sodium Chloride 0.9% 1,000 ML IV ONE (00:55)
--- NOTE | 2021-05-29 01:53 | CT ---
PROCEDURE INFORMATION: Exam: CT Abdomen And Pelvis With Contrast Exam date and time: 05/29/2021 12:21 AM Age: 76 years old Clinical indication: Nausea and vomiting; Prior surgery; Surgery date: 6+ months; Surgery type: Gallbladder removed, appendix removed, hysterectomy; Patient HX: Chf, aaa; Additional info: Abd pain, vomiting TECHNIQUE: Imaging protocol: Computed tomography of the abdomen and pelvis with contrast. Radiation optimization: All CT scans at this facility use at least one of these dose optimization techniques: automated exposure control; mA and/or kV adjustment per patient size (includes targeted exams where dose is matched to clinical indication); or iterative reconstruction. Contrast material: ISOVUE 300; Contrast volume: 75 ml; Contrast route: INTRAVENOUS (IV); COMPARISON: No relevant prior studies available. FINDINGS: Liver: Normal. No mass. Gallbladder and bile ducts: The gallbladder has been removed. The common bile duct is mildly enlarged measuring up to 1.2 cm. This is likely due to prior cholecystectomy. No definite stones are identified. Pancreas: Normal. No ductal dilation. Spleen: Normal. No splenomegaly. Adrenal glands: Normal. No mass. Kidneys and ureters: Normal. No hydronephrosis. Stomach and bowel: Unremarkable. No obstruction. No mucosal thickening. Appendix: No evidence of appendicitis. Intraperitoneal space: Unremarkable. No free air. No significant fluid collection. Vasculature: The descending thoracic aorta is enlarged above the diaphragmatic hiatus. The descending thoracic aorta measures approximately 4.5 x 4.4 cm and demonstrates some soft thrombus. Finding is compatible with a descending thoracic aortic aneurysm. Consider CT scan of the chest for more definitive characterization. Lymph nodes: Unremarkable. No enlarged lymph nodes. Urinary bladder: Unremarkable as visualized. Reproductive: Unremarkable as visualized. Bones/joints: Moderate grade degenerative changes are present within the lumbar spine. Mild compression fracture L1, L3 and L4 present. These are age indeterminate. Correlation with any prior imaging studies would be useful. If unavailable and there is sufficient back pain, could consider MRI for further evaluation. Soft tissues: Unremarkable. IMPRESSION: 1. Descending thoracic aortic aneurysm incompletely characterized on this CT scan of the abdomen pelvis. 2. Multiple mild lumbar compression fractures. Comparison studies are not currently available. Consider MRI if indicated. 3. Status post cholecystectomy with enlargement the common bile duct which is likely due to prior removal of the gallbladder. Please see above.
[2021-05-29] MEDS ORDERED: Ondansetron 4 MG Tab.DIS ONE (03:11)
== END 2021-05-29 03:25 | disposition home or self-care (01) ==
LOC: DL.ED 23:23
DX: K52.9 Noninfective gastroenteritis and colitis, unspecified (principal); I10 Essential (primary) hypertension; Z79.82 Long term (current) use of aspirin; Z79.01 Long term (current) use of anticoagulants; Z88.6 Allergy status to analgesic agent; Z20.822 Contact with and (suspected) exposure to COVID-19; Z88.0 Allergy status to penicillin; Z91.013 Allergy to seafood; Z91.048 Other nonmedicinal substance allergy status; Z91.040 Latex allergy status; Z88.5 Allergy status to narcotic agent
CPT/HCPCS: 0240U; 36415; 74177; 80053; 80307; 81001; 82150; 83605; 83690; 83735; 83880; 84484; 85025; 85610; 87040; 87086; 87088; 87186; 93005; 96374; 96375; 99284; A9270; J2405; J3010; J7030; Q9967; 93010

== ENCOUNTER 2021-09-17 09:13 | Inpatient (IN) | payer MEDICARE, MEDICAID ==
[2021-09-17] MEDS ORDERED: Ondansetron 4 MG Tab.DIS PO PRN ×2 (17:29→17:31)
[2021-09-17] MEDS: Apixaban 5 MG Tab PO SCH ×2 (20:01→22:27)
[2021-09-17] MEDS: Tamsulosin 0.4 MG Cap.ER PO SCH (22:31)
[2021-09-18] MEDS: predniSONE 1 MG Tab PO SCH (09:23)
[2021-09-18] MEDS: Apixaban 5 MG Tab PO SCH ×2 (09:23→21:37)
[2021-09-18] MEDS: Aspirin 81 MG Tab.EC PO SCH (09:23)
[2021-09-18] MEDS: Cholecalciferol (Vitamin D3) 25 MCG Tab PO SCH (09:23)
[2021-09-18] MEDS: Lisinopril 10 MG Tab PO SCH (09:24)
[2021-09-18] MEDS: Metoprolol Succinate 25 MG Tab.ER PO SCH (09:24)
[2021-09-18] MEDS: Lidocaine 5% 700 MG Patch TOP SCH (14:08)
[2021-09-18] MEDS: DAPTOmycin 500 MG Vial IVPUSH SCH (18:06)
[2021-09-18] MEDS ORDERED: Furosemide 20 MG Tab PO PRN (19:51)
[2021-09-18] MEDS ORDERED: Non-Formulary Medication 1 Each (Lidocaine 4% [Aspercreme 4%] 1 EACH Patch) TP PRN (19:51)
[2021-09-18] MEDS ORDERED: Acetaminophen 500 MG Tab PO PRN (19:52)
[2021-09-18] MEDS: Docusate Sodium 100 MG Cap PO SCH (21:36)
[2021-09-18] MEDS: Tamsulosin 0.4 MG Cap.ER PO SCH (21:37)
[2021-09-18] MEDS: ACETAMINOPHEN 500 MG PO PRN (21:38)
[2021-09-19] MEDS: Lidocaine 5% 700 MG Patch TOP SCH ×3 (09:23→12:41)
[2021-09-19] MEDS: Docusate Sodium 100 MG Cap PO SCH ×2 (09:24→21:00)
[2021-09-19] MEDS: predniSONE 1 MG Tab PO SCH (09:24)
[2021-09-19] MEDS: Aspirin 81 MG Tab.EC PO SCH (09:24)
[2021-09-19] MEDS: Lisinopril 10 MG Tab PO SCH (09:26)
[2021-09-19] MEDS: Metoprolol Succinate 25 MG Tab.ER PO SCH (09:26)
[2021-09-19] MEDS: Apixaban 5 MG Tab PO SCH ×2 (09:27→21:03)
[2021-09-19] MEDS: Cholecalciferol (Vitamin D3) 25 MCG Tab PO SCH (09:29)
[2021-09-19] MEDS: ACETAMINOPHEN 500 MG PO PRN ×2 (12:52→21:04)
[2021-09-19] MEDS: DAPTOmycin 500 MG Vial IVPUSH SCH (18:23)
[2021-09-19] MEDS: Tamsulosin 0.4 MG Cap.ER PO SCH (21:03)
[2021-09-20] MEDS: Sodium Chloride 0.9% 10 ML Syringe FLUSH PRN (04:53)
--- NOTE | 2021-09-20 07:37 | PCM.HP ---
H&P History of Present Illness - General Date of Service: 09/17/21 Admit Problem/Dx: Admission Diagnosis/Problem Admission Diagnosis/Problem Osteomyelitis - History of Present Illness Initial Comments - Free Text/Narative: Prakash is a 76-year-old woman who is being admitted here on swing bed for IV antibiotic treatment as well as wound care. On January 212020, she had a aortic valve replacement and ascending aortic aneurysm replacement. She did very well post surgery. She presented back to the clinic in follow-up on June 11 complaining of swelling and pain over her sternum. Work-up at that time found abscess, and she was taken back to surgery on June 25 to remove the sternal wire and I&D her abscess and surrounding soft tissues. She had significant issues with wound healing after this initial I&D and debridement was performed, and she had to be hospitalized for healing via wound VAC care. She received daptomycin and ertapenem, and after consultation with infectious disease, was deemed appropriate for her to continue for another 6 weeks of IV daptomycin therapy. Due to this, and the fact that she still is requiring wound VAC to heal the large wound in her mid sternum, she was referred for swing bed admission here for [facility] care. Chest Pain Score (Numeric/FACES): 3 Back Pain Score (Numeric/FACES): 5 - Related Data Allergies/Adverse Reactions: Allergies Allergy/AdvReac Type Severity Reaction Status Date / Time Cephalosporins Allergy Rash Verified 09/17/21 15:17 diazepam [From Valium] Allergy Cannot Verified 09/17/21 15:17 Remember latex Allergy Rash Verified 09/17/21 15:17 morphine Allergy Cannot Verified 09/17/21 15:17 Remember nickel Allergy Rash Verified 09/17/21 15:17 Penicillins Allergy Hives Verified 09/17/21 15:17 promethazine [From Phenergan] Allergy Cannot Verified 09/17/21 15:17 Remember shellfish derived Allergy Rash Verified 09/17/21 15:17 Home Medications: Home Meds Aspirin [Adult Aspirin Regimen] 81 mg PO DAILY 03/06/21 [History] Metoprolol Succinate [Toprol XL] 25 mg PO DAILY 03/06/21 [History] predniSONE [Prednisone] 4 mg PO DAILY 03/06/21 [History] Cholecalciferol (Vitamin D3) [Vitamin D3] 1,000 unit PO DAILY 09/17/21 [History] Furosemide [Lasix] 20 mg PO DAILY PRN 09/17/21 [History] Lidocaine 4% [Aspercreme 4%] 1 each TP DAILY PRN 09/17/21 [History] Ondansetron [Zofran ODT] 4 mg PO Q8H PRN 09/17/21 [History] Tamsulosin HCl [Flomax] 0.4 mg PO BEDTIME 09/17/21 [History] lisinopriL [Lisinopril] 10 mg PO DAILY 09/17/21 [History] Acetaminophen [Tylenol Extra Strength] 1,000 mg PO Q6HR PRN 09/18/21 [History] Past Medical History HEENT History: Reports: Cataract, Hard of Hearing, Impaired Vision Cardiovascular History: Reports: Aneurysm, Arrhythmia, Heart Murmur, Heart Valve Replacement, Hypertension, Other (See Below) Other Cardiovascular History: ascending aortic aneurysm, aorti valve insufficiency, systemic vasculitis syndrome Respiratory History: Reports: Other (See Below) Other Respiratory History: pleural effusions to right lung and nodule on right lung Gastrointestinal History: Reports: Cholelithiasis, Other (See Below) Other Gastrointestinal History: severe protein calorie malnutrition Genitourinary History: Reports: Other (See Below) Other Genitourinary History: URINARY RETENTION S/P SURGERY PEDIATRIC ONCOLOGY NURSE History: Reports: Fibroids, Musculoskeletal History: Reports: Back Pain, Chronic, Fracture, Osteoarthritis, Osteoporosis, RA, Other (See Below) Other Musculoskeletal History: spinal fx Neurological History: Reports: Other (See Below) Other Neuro History: low back pain, polymyalgia rheumatica Psychiatric History: Reports: Anxiety Endocrine/Metabolic History: Reports: Osteoporosis Hematologic History: Reports: Anemia Immunologic History: Reports: Other (See Below) Other Immunologic History: rheumatoid arthritis Oncologic (Cancer) History: Reports: None Dermatologic History: Reports: None - Infectious Disease History Infectious Disease History: Reports: Chicken Pox, Hepatitis A, Measles, Other (See Below) Other Infectious Disease History: hepatitis - Past Surgical History Head Surgeries/Procedures: Reports: None HEENT Surgical History: Reports: None Cardiovascular Surgical History: Reports: AAA Repair, Coronary Artery Bypass, Valve Replacement Respiratory Surgical History: Reports: None GI Surgical History: Reports: Appendectomy, Cholecystectomy Female Surgical History: Reports: Hysterectomy Endocrine Surgical History: Reports: None Neurological Surgical History: Reports: None Musculoskeletal Surgical History: Reports: None Oncologic Surgical History: Reports: Biopsy of Breast, Lumpectomy Other Oncologic Surgeries/Procedures: benign breast lumps Social & Family History - Family History Family Medical History: No Pertinent Family History - Tobacco Use Tobacco Use Status *Q: Former Tobacco User Used Tobacco, but Quit: Yes Month/Year Tobacco Last Used: 2019 - Caffeine Use Caffeine Use: Reports: Coffee, Soda, Tea - Recreational Drug Use Recreational Drug Use: No - Living Situation & Occupation Living situation: Reports: with Family Occupation: Retired H&P Review of Systems - Review of Systems: Review Of Systems: See Below General: Denies: Fever, Chills HEENT: Denies: Hearing Changes, Visual Changes Pulmonary: Denies: Shortness of Breath, Cough Cardiovascular: Reports: Other (She is having pain over the wound site in her sternum). Denies: Chest Pain, Palpitations Gastrointestinal: Denies: Constipation, Diarrhea, Hematochezia, Melena, Nausea, Vomiting Genitourinary: Reports: Other (Recently treated for UTI with 5 days of IV antibiotics). Denies: Dysuria, Hematuria Musculoskeletal: Denies: Joint Pain, Joint Swelling Skin: Reports: Other (See HPI). Denies: Lesions Neurological: Denies: Trouble Speaking, Difficulty Walking Review of Systems Comment:: Rest of her review of systems is complete and negative Exam - Exam Exam: See Below - Vital Signs Vital Signs: Last Vital Signs Temp 98.5 F 09/19/21 20:00 Pulse 68 09/19/21 20:00 Resp 20 09/19/21 20:00 BP 120/52 L 09/19/21 20:00 Pulse Ox 98 09/19/21 20:00 Weight: 116 lb - Exam Physical Exam Comments:: General: Patient is a 76-year-old woman in no acute distress She is alert and oriented x3 Oropharynx is clear, mucous membranes are moist Neck: Supple, no lymphadenopathy Heart: Regular rate and rhythm Lungs: Clear to auscultation throughout The wound on her sternum is currently covered with wound VAC, nursing will continue to document wound healing with photographs for the chart *Q Meaningful Use (ADM) - VTE Risk Assess *Q Each Risk Factor Represents 1 Point: None Total Score 1 Point Risk Factors: 0 Each Risk Factor Represents 2 Points: Major surgery greater than 45 minutes Total Score 2 Point Risk Factors: 2 Each Risk Factor Represents 3 Points: Age 75 Years or Greater Total Score 3 Point Risk Factors: 3 Each Risk Factor Represents 5 Points: None Total Score 5 Point Risk Factors: 0 Venous Thromboembolism Risk Factor Score *Q: 5 - Problem List (1) Postoperative infection of wound of sternum SNOMED Code(s): 25279561 ICD Code: T81.49XA - INFECTION FOLLOWING A PROCEDURE, OTHER SURGICAL SITE, INIT Status: Acute Current Visit: Yes (2) History of AAA (abdominal aortic aneurysm) repair SNOMED Code(s): 755045376 ICD Code: Z98.890 - OTHER SPECIFIED POSTPROCEDURAL STATES Status: Acute Current Visit: No Problem List Initiated/Reviewed/Updated: Yes Orders Last 24hrs: Active Orders 24 hr Category Date Time Status Communication Order [RC] Care 09/19/21 15:19 Active Communication Order [RC] Care 09/19/21 15:21 Active Medication Orders Acetaminophen (Acetaminophen 500 Mg Caplet Own Med) 1,000 mg PO Q6H PRN PRN Reason: Pain/Fever Last Admin: 09/19/21 21:04 Dose: 1,000 mg Documented by: Admin: 09/19/21 12:52 Dose: 1,000 mg Documented by: Admin: 09/18/21 21:38 Dose: 1,000 mg Documented by: REBEKA Apixaban (Apixaban 5 Mg Tab) 2.5 mg PO BID [facility] Last Admin: 09/19/21 21:03 Dose: 2.5 mg Documented by: Admin: 09/19/21 09:27 Dose: 2.5 mg Documented by: Admin: 09/18/21 21:37 Dose: 2.5 mg Documented by: Admin: 09/18/21 09:23 Dose: 2.5 mg Documented by: Admin: 09/17/21 22:27 Dose: Not Given Documented by: Admin: 09/17/21 20:01 Dose: 2.5 mg Documented by: JOVITA Aspirin (Aspirin 81 Mg Tab.Ec) 81 mg PO DAILY [facility] Last Admin: 09/19/21 09:24 Dose: 81 mg Documented by: Admin: 09/18/21 09:23 Dose: 81 mg Documented by: EVERTON Cholecalciferol (Cholecalciferol (Vitamin D3) 25 Mcg Tab) 25 mcg PO DAILY [facility] Last Admin: 09/19/21 09:29 Dose: 25 mcg Documented by: Admin: 09/18/21 09:23 Dose: 25 mcg Documented by: EVERTON Daptomycin (Daptomycin 500 Mg Vial) 300 mg IVPUSH DAILY@1800 [facility] Last Admin: 09/19/21 18:23 Dose: 300 mg Documented by: Admin: 09/18/21 18:06 Dose: 300 mg Documented by: EVERTON Docusate Sodium (Docusate Sodium 100 Mg Cap) 100 mg PO BID [facility] Last Admin: 09/19/21 21:00 Dose: Not Given Documented by: Admin: 09/19/21 09:24 Dose: Not Given Documented by: Admin: 09/18/21 21:36 Dose: Not Given Documented by: REBEKA Furosemide (Furosemide 20 Mg Tab) 20 mg PO DAILY PRN PRN Reason: Edema Lidocaine (Lidocaine 5% 700 Mg Patch) 700 mg TOP DAILY [facility] Last Admin: 09/19/21 12:41 Dose: 700 mg Documented by: Admin: 09/19/21 09:36 Dose: Not Given Documented by: Admin: 09/18/21 14:08 Dose: 700 mg Documented by: EVERTON Lisinopril (Lisinopril 10 Mg Tab) 10 mg PO DAILY [facility] Last Admin: 09/19/21 09:26 Dose: 10 mg Documented by: Admin: 09/18/21 09:24 Dose: 10 mg Documented by: EVERTON Metoprolol Succinate (Metoprolol Succinate 25 Mg Tab.Er) 25 mg PO DAILY [facility] Last Admin: 09/19/21 09:26 Dose: 25 mg Documented by: Admin: 09/18/21 09:24 Dose: 25 mg Documented by: EVERTON Miscellaneous Information (Remove Lidocaine Patch) 1 ea TRDERM BEDTIME [facility] Last Admin: 09/19/21 21:12 Dose: 1 ea Documented by: Admin: 09/18/21 22:12 Dose: 1 ea Documented by: REBEKA Ondansetron HCl (Ondansetron 4 Mg Tab.Dis) 4 mg PO Q6H PRN PRN Reason: nausea, able to take PO Prednisone (Prednisone 1 Mg Tab) 4 mg PO DAILY [facility] Last Admin: 09/19/21 09:24 Dose: 4 mg Documented by: Admin: 09/18/21 09:23 Dose: 4 mg Documented by: EVERTON Sodium Chloride (Sodium Chloride 0.9% 10 Ml Syringe) 10 ml FLUSH ASDIRECTED PRN PRN Reason: IV Use Last Admin: 09/20/21 04:53 Dose: 10 ml Documented by: REBEKA Tamsulosin HCl (Tamsulosin 0.4 Mg Cap.Er) 0.4 mg PO BEDTIME [facility] Last Admin: 09/19/21 21:03 Dose: 0.4 mg Documented by: Admin: 09/18/21 21:37 Dose: 0.4 mg Documented by: Admin: 09/17/21 22:31 Dose: Not Given Documented by: MALIKA Assessment/Plan Comment:: Assessment/Plan: 1. 76-year-old woman with history of postoperative abscess secondary to cardiothoracic surgery 2. Wound of the soft tissue overlying the sternum, healing by secondary intention -She is admitted to [facility] bed -Per infectious disease, she will receive daptomycin, 300 mg IV daily -Wound VAC is currently in place, nursing here is familiar with replacing and maintaining this. She is scheduled to have weekly appointments with both wound care as well as infectious disease 3. History of paroxysmal atrial fibrillation with rapid ventricular response -She appears to be well rate controlled with metoprolol succinate -Continue apixaban 4. VTE prophylaxis: She is already on apixaban secondary to increased stroke risk from chronic atrial fibrillation
[2021-09-20] MEDS: Aspirin 81 MG Tab.EC PO SCH (10:04)
[2021-09-20] MEDS: Lisinopril 10 MG Tab PO SCH (10:04)
[2021-09-20] MEDS: Cholecalciferol (Vitamin D3) 25 MCG Tab PO SCH (10:05)
[2021-09-20] MEDS: predniSONE 1 MG Tab PO SCH (10:05)
[2021-09-20] MEDS: Metoprolol Succinate 25 MG Tab.ER PO SCH (10:05)
[2021-09-20] MEDS: Docusate Sodium 100 MG Cap PO SCH ×2 (10:06→20:24)
[2021-09-20] MEDS: Lidocaine 5% 700 MG Patch TOP SCH (10:08)
[2021-09-20] MEDS: Apixaban 5 MG Tab PO SCH ×2 (10:08→20:24)
[2021-09-20] MEDS: ACETAMINOPHEN 500 MG PO PRN ×2 (10:13→20:27)
[2021-09-20] MEDS: DAPTOmycin 500 MG Vial IVPUSH SCH (18:21)
[2021-09-20] MEDS: Tamsulosin 0.4 MG Cap.ER PO SCH (20:24)
[2021-09-21] MEDS: Metoprolol Succinate 25 MG Tab.ER PO SCH (08:42)
[2021-09-21] MEDS: Aspirin 81 MG Tab.EC PO SCH (08:42)
[2021-09-21] MEDS: Cholecalciferol (Vitamin D3) 25 MCG Tab PO SCH (08:42)
[2021-09-21] MEDS: Lisinopril 10 MG Tab PO SCH (08:42)
[2021-09-21] MEDS: Docusate Sodium 100 MG Cap PO SCH ×2 (08:42→20:51)
[2021-09-21] MEDS: predniSONE 1 MG Tab PO SCH (08:42)
[2021-09-21] MEDS: Apixaban 5 MG Tab PO SCH ×2 (08:44→20:51)
[2021-09-21] MEDS: Lidocaine 5% 700 MG Patch TOP SCH (08:46)
[2021-09-21] MEDS: ACETAMINOPHEN 500 MG PO PRN (13:28)
[2021-09-21] MEDS: Ibuprofen 400 MG Tab PO PRN (14:28)
[2021-09-21] MEDS: DAPTOmycin 500 MG Vial IVPUSH SCH (17:22)
[2021-09-21] MEDS: Tamsulosin 0.4 MG Cap.ER PO SCH (20:51)
[2021-09-22] MEDS: Docusate Sodium 100 MG Cap PO SCH ×2 (08:35→20:21)
[2021-09-22] MEDS: Lisinopril 10 MG Tab PO SCH (08:35)
[2021-09-22] MEDS: Cholecalciferol (Vitamin D3) 25 MCG Tab PO SCH (08:36)
[2021-09-22] MEDS: Aspirin 81 MG Tab.EC PO SCH (08:36)
[2021-09-22] MEDS: predniSONE 1 MG Tab PO SCH (08:36)
[2021-09-22] MEDS: Metoprolol Succinate 25 MG Tab.ER PO SCH (08:36)
[2021-09-22] MEDS: Apixaban 5 MG Tab PO SCH ×2 (08:37→20:21)
[2021-09-22] MEDS: Lidocaine 5% 700 MG Patch TOP SCH (08:38)
[2021-09-22] MEDS: Ibuprofen 400 MG Tab PO PRN (15:52)
[2021-09-22] MEDS: DAPTOmycin 500 MG Vial IVPUSH SCH (17:03)
[2021-09-22] MEDS: Tamsulosin 0.4 MG Cap.ER PO SCH (20:21)
[2021-09-23] MEDS: Apixaban 5 MG Tab PO SCH ×2 (08:52→20:23)
[2021-09-23] MEDS: predniSONE 1 MG Tab PO SCH (08:52)
[2021-09-23] MEDS: Aspirin 81 MG Tab.EC PO SCH (08:53)
[2021-09-23] MEDS: Cholecalciferol (Vitamin D3) 25 MCG Tab PO SCH (08:53)
[2021-09-23] MEDS: Metoprolol Succinate 25 MG Tab.ER PO SCH (08:54)
[2021-09-23] MEDS: Lisinopril 10 MG Tab PO SCH (08:54)
[2021-09-23] MEDS: ACETAMINOPHEN 500 MG PO PRN ×2 (08:55→20:24)
[2021-09-23] MEDS: Docusate Sodium 100 MG Cap PO SCH ×2 (08:57→20:22)
[2021-09-23] MEDS: Lidocaine 5% 700 MG Patch TOP SCH (08:57)
--- NOTE | 2021-09-23 11:46 | PCM.PN ---
- General Info Date of Service: 09/23/21 Admission Dx/Problem (Free Text): Admission Diagnosis/Problem Admission Diagnosis/Problem Osteomyelitis Subjective Update: feeling well tolerating wound vac no associated fever, chills eating ok no abd pain, no sob - Review of Systems Gastrointestinal: Denies: Abdominal Pain Genitourinary: Denies: Dysuria Neurological: Denies: Confusion Psychiatric: Denies: Anxiety - Patient Data Vitals - Most Recent: Last Vital Signs Temp 96.0 F L 09/23/21 07:40 Pulse 66 09/23/21 08:54 Resp 20 09/23/21 07:40 BP 131/62 09/23/21 08:54 Pulse Ox 96 09/23/21 07:40 Weight - Most Recent: 116 lb I&O - Last 24 Hours: Intake & Output 09/22/21 09/23/21 09/23/21 22:59 06:59 14:59 Intake Total 520 Balance 520 Med Orders - Current: Current Medications Acetaminophen (Acetaminophen 500 Mg Caplet Own Med) 1,000 mg PO Q6H PRN PRN Reason: Pain/Fever Last Admin: 09/23/21 08:55 Dose: 1,000 mg Documented by: Apixaban (Apixaban 5 Mg Tab) 2.5 mg PO BID [facility] Last Admin: 09/23/21 08:52 Dose: 2.5 mg Documented by: Aspirin (Aspirin 81 Mg Tab.Ec) 81 mg PO DAILY [facility] Last Admin: 09/23/21 08:53 Dose: 81 mg Documented by: Cholecalciferol (Cholecalciferol (Vitamin D3) 25 Mcg Tab) 25 mcg PO DAILY [facility] Last Admin: 09/23/21 08:53 Dose: 25 mcg Documented by: Daptomycin (Daptomycin 500 Mg Vial) 300 mg IVPUSH DAILY@1800 [facility] Last Admin: 09/22/21 17:03 Dose: 300 mg Documented by: Docusate Sodium (Docusate Sodium 100 Mg Cap) 100 mg PO BID [facility] Last Admin: 09/23/21 08:57 Dose: Not Given Documented by: Furosemide (Furosemide 20 Mg Tab) 20 mg PO DAILY PRN PRN Reason: Edema Ibuprofen (Ibuprofen 400 Mg Tab) 400 mg PO Q6H PRN PRN Reason: Pain (moderate 4-6) Last Admin: 09/22/21 15:52 Dose: 400 mg Documented by: Lidocaine (Lidocaine 5% 700 Mg Patch) 700 mg TOP DAILY [facility] Last Admin: 09/23/21 08:57 Dose: Not Given Documented by: Lisinopril (Lisinopril 10 Mg Tab) 10 mg PO DAILY [facility] Last Admin: 09/23/21 08:54 Dose: 10 mg Documented by: Metoprolol Succinate (Metoprolol Succinate 25 Mg Tab.Er) 25 mg PO DAILY [facility] Last Admin: 09/23/21 08:54 Dose: 25 mg Documented by: Miscellaneous Information (Remove Lidocaine Patch) 1 ea TRDERM BEDTIME [facility] Last Admin: 09/22/21 20:22 Dose: Not Given Documented by: Ondansetron HCl (Ondansetron 4 Mg Tab.Dis) 4 mg PO Q6H PRN PRN Reason: nausea, able to take PO Prednisone (Prednisone 1 Mg Tab) 4 mg PO DAILY [facility] Last Admin: 09/23/21 08:52 Dose: 4 mg Documented by: Sodium Chloride (Sodium Chloride 0.9% 10 Ml Syringe) 10 ml FLUSH ASDIRECTED PRN PRN Reason: IV Use Last Admin: 09/20/21 04:53 Dose: 10 ml Documented by: Tamsulosin HCl (Tamsulosin 0.4 Mg Cap.Er) 0.4 mg PO BEDTIME [facility] Last Admin: 09/22/21 20:21 Dose: 0.4 mg Documented by: Discontinued Medications Acetaminophen (Acetaminophen 500 Mg Tab) 1,000 mg PO Q6H PRN PRN Reason: Pain/Fever Daptomycin 300 mg/ Sodium (Chloride) 50 mls @ 100 mls/hr IV Q24H [facility] Stop: 10/01/21 18:01 Last Admin: 09/17/21 20:00 Dose: 100 mls/hr Documented by: - Exam General: Alert, Oriented Lungs: Clear to Auscultation, Normal Respiratory Effort Cardiovascular: Regular Rate, Regular Rhythm GI/Abdominal Exam: Normal Bowel Sounds, Soft, Non-Tender Extremities: No Pedal Edema Skin: Other (sternal wound vac) Neurological: No New Focal Deficit Psy/Mental Status: Alert, Normal Affect, Normal Mood Sepsis Event Note - Evaluation Sepsis Screening Result: No Definite Risk - Focused Exam Vital Signs: Vital Signs Temp Pulse Pulse Resp BP BP Pulse Ox 09/23/21 08:54 66 131/62 11/01/21 07:40 96.0 F L 66 20 131/62 96 - Problem List & Annotations (1) Sternal wound infection SNOMED Code(s): 61339454 Code(s): S21.101A - UNSP OPN WND R FRNT WL OF THORAX W/O PENET THOR CAVITY, INIT; L08.9 - LOCAL INFECTION OF THE SKIN AND SUBCUTANEOUS TISSUE, UNSP Status: Acute Current Visit: Yes (2) Wound of sternal region SNOMED Code(s): 755496458 Code(s): S21.109A - UNSP OPN WND UNSP FRNT WALL OF THRX W/O PENET THOR CAV, INIT Status: Acute Current Visit: Yes - Problem List Review Problem List Initiated/Reviewed/Updated: Yes - Plan Plan:: Assessment/Plan: Prakash is a 76-year-old woman who is being admitted here on swing bed for IV antibiotic treatment as well as wound care. On January 212020, she had a aortic valve replacement and ascending aortic aneurysm replacement. She did very well post surgery. She presented back to the clinic in follow-up on June 11 complaining of swelling and pain over her sternum. Work-up at that time found abscess, and she was taken back to surgery on June 25 to remove the sternal wire and I&D her abscess and surrounding soft tissues. She had significant issues with wound healing after this initial I&D and debridement was performed, and she had to be hospitalized for healing via wound VAC care. She received daptomycin and ertapenem, and after consultation with infectious disease, was deemed appropriate for her to continue for another 6 weeks of IV daptomycin therapy. 1. Wound care continue to manage with wound vac 2. postoperative sternal abscess treat with daptomycin initial plan was 6 weeks IV ABx follow up with ID weekly 3. History of paroxysmal atrial fibrillation with rapid ventricular response -She appears to be well rate controlled with metoprolol succinate -Continue apixaban
[2021-09-23 12:05] LABS: ANION GAP 11.4 mEq/L (7-13)
[2021-09-23] MEDS: DAPTOmycin 500 MG Vial IVPUSH SCH (18:21)
[2021-09-23] MEDS: Tamsulosin 0.4 MG Cap.ER PO SCH (20:23)
[2021-09-23] MEDS: Sodium Chloride 0.9% 10 ML Syringe FLUSH PRN (20:27)
[2021-09-24] MEDS: Aspirin 81 MG Tab.EC PO SCH (08:10)
[2021-09-24] MEDS: ACETAMINOPHEN 500 MG PO PRN ×2 (08:10→20:37)
[2021-09-24] MEDS: Metoprolol Succinate 25 MG Tab.ER PO SCH (08:11)
[2021-09-24] MEDS: Apixaban 5 MG Tab PO SCH ×2 (08:11→20:35)
[2021-09-24] MEDS: Lisinopril 10 MG Tab PO SCH (08:12)
[2021-09-24] MEDS: Lidocaine 5% 700 MG Patch TOP SCH (08:13)
[2021-09-24] MEDS: Cholecalciferol (Vitamin D3) 25 MCG Tab PO SCH (08:14)
[2021-09-24] MEDS: Docusate Sodium 100 MG Cap PO SCH ×2 (08:14→20:35)
[2021-09-24] MEDS: Ibuprofen 400 MG Tab PO PRN (15:40)
[2021-09-24] MEDS: predniSONE 1 MG Tab PO SCH (16:54)
[2021-09-24] MEDS: Sodium Chloride 0.9% 10 ML Syringe FLUSH PRN (18:41)
[2021-09-24] MEDS: DAPTOmycin 500 MG Vial IVPUSH SCH (18:42)
[2021-09-24] MEDS: Tamsulosin 0.4 MG Cap.ER PO SCH (20:36)
[2021-09-25] MEDS: Apixaban 5 MG Tab PO SCH ×2 (09:18→20:50)
[2021-09-25] MEDS: Docusate Sodium 100 MG Cap PO SCH ×2 (09:18→20:50)
[2021-09-25] MEDS: predniSONE 1 MG Tab PO SCH (09:19)
[2021-09-25] MEDS: Aspirin 81 MG Tab.EC PO SCH (09:20)
[2021-09-25] MEDS: Metoprolol Succinate 25 MG Tab.ER PO SCH (09:20)
[2021-09-25] MEDS: Cholecalciferol (Vitamin D3) 25 MCG Tab PO SCH (09:20)
[2021-09-25] MEDS: Lisinopril 10 MG Tab PO SCH (09:21)
[2021-09-25] MEDS: Lidocaine 5% 700 MG Patch TOP SCH (09:22)
[2021-09-25] MEDS: DAPTOmycin 500 MG Vial IVPUSH SCH (17:41)
[2021-09-25] MEDS: Tamsulosin 0.4 MG Cap.ER PO SCH (20:50)
[2021-09-25] MEDS: ACETAMINOPHEN 500 MG PO PRN (20:51)
[2021-09-26] MEDS: Docusate Sodium 100 MG Cap PO SCH ×2 (08:44→21:07)
[2021-09-26] MEDS: Aspirin 81 MG Tab.EC PO SCH (08:44)
[2021-09-26] MEDS: Metoprolol Succinate 25 MG Tab.ER PO SCH (08:45)
[2021-09-26] MEDS: predniSONE 1 MG Tab PO SCH (08:45)
[2021-09-26] MEDS: Cholecalciferol (Vitamin D3) 25 MCG Tab PO SCH (08:46)
[2021-09-26] MEDS: Lisinopril 10 MG Tab PO SCH (08:46)
[2021-09-26] MEDS: Lidocaine 5% 700 MG Patch TOP SCH (08:47)
[2021-09-26] MEDS: Apixaban 5 MG Tab PO SCH ×2 (08:50→21:06)
[2021-09-26] MEDS: ACETAMINOPHEN 500 MG PO PRN (08:54)
[2021-09-26] MEDS: SODIUM CHLORIDE 0.9% IVPUSH SCH (18:32)
[2021-09-26] MEDS: DAPTOMYCIN IVPUSH SCH (18:32)
[2021-09-26] MEDS: Tamsulosin 0.4 MG Cap.ER PO SCH (21:06)
[2021-09-27] MEDS: Cholecalciferol (Vitamin D3) 25 MCG Tab PO SCH (08:57)
[2021-09-27] MEDS: Metoprolol Succinate 25 MG Tab.ER PO SCH (08:58)
[2021-09-27] MEDS: predniSONE 1 MG Tab PO SCH (08:58)
[2021-09-27] MEDS: Aspirin 81 MG Tab.EC PO SCH (08:59)
[2021-09-27] MEDS: ACETAMINOPHEN 500 MG PO PRN ×2 (08:59→20:49)
[2021-09-27] MEDS: Lisinopril 10 MG Tab PO SCH (08:59)
[2021-09-27] MEDS: Docusate Sodium 100 MG Cap PO SCH ×3 (08:59→21:00)
[2021-09-27] MEDS: Apixaban 5 MG Tab PO SCH ×2 (09:02→20:39)
[2021-09-27] MEDS: Lidocaine 5% 700 MG Patch TOP SCH (09:02)
[2021-09-27] MEDS: Sodium Chloride 0.9% 10 ML Syringe FLUSH PRN ×2 (10:06→18:33)
[2021-09-27] MEDS: Ibuprofen 400 MG Tab PO PRN (14:15)
[2021-09-27] MEDS: SODIUM CHLORIDE 0.9% IVPUSH SCH (18:33)
[2021-09-27] MEDS: DAPTOMYCIN IVPUSH SCH (18:33)
[2021-09-27] MEDS: Tamsulosin 0.4 MG Cap.ER PO SCH (20:40)
[2021-09-28] MEDS: Docusate Sodium 100 MG Cap PO SCH ×2 (08:17→21:51)
[2021-09-28] MEDS: Aspirin 81 MG Tab.EC PO SCH (08:18)
[2021-09-28] MEDS: Cholecalciferol (Vitamin D3) 25 MCG Tab PO SCH (08:18)
[2021-09-28] MEDS: Lisinopril 10 MG Tab PO SCH (08:18)
[2021-09-28] MEDS: Apixaban 5 MG Tab PO SCH ×2 (08:18→21:51)
[2021-09-28] MEDS: Metoprolol Succinate 25 MG Tab.ER PO SCH (08:19)
[2021-09-28] MEDS: Lidocaine 5% 700 MG Patch TOP SCH (08:19)
[2021-09-28] MEDS: predniSONE 1 MG Tab PO SCH (08:19)
[2021-09-28] MEDS: ACETAMINOPHEN 500 MG PO PRN ×2 (08:20→21:53)
[2021-09-28] MEDS: SODIUM CHLORIDE 0.9% IVPUSH SCH (17:50)
[2021-09-28] MEDS: DAPTOMYCIN IVPUSH SCH (17:50)
[2021-09-28] MEDS: Tamsulosin 0.4 MG Cap.ER PO SCH (21:51)
[2021-09-29] MEDS: ACETAMINOPHEN 500 MG PO PRN ×2 (08:19→21:26)
[2021-09-29] MEDS: Cholecalciferol (Vitamin D3) 25 MCG Tab PO SCH (08:20)
[2021-09-29] MEDS: Aspirin 81 MG Tab.EC PO SCH (08:20)
[2021-09-29] MEDS: predniSONE 1 MG Tab PO SCH (08:20)
[2021-09-29] MEDS: Metoprolol Succinate 25 MG Tab.ER PO SCH (08:20)
[2021-09-29] MEDS: Lisinopril 10 MG Tab PO SCH (08:20)
[2021-09-29] MEDS: Apixaban 5 MG Tab PO SCH ×2 (08:20→21:27)
[2021-09-29] MEDS: Docusate Sodium 100 MG Cap PO SCH (08:21)
[2021-09-29] MEDS: Lidocaine 5% 700 MG Patch TOP SCH (08:21)
[2021-09-29] MEDS ORDERED: Docusate Sodium 100 MG Cap PO PRN (09:06)
[2021-09-29] MEDS: SODIUM CHLORIDE 0.9% IVPUSH SCH (18:02)
[2021-09-29] MEDS: DAPTOMYCIN IVPUSH SCH (18:02)
[2021-09-29] MEDS: Tamsulosin 0.4 MG Cap.ER PO SCH (21:27)
[2021-09-30] MEDS: Aspirin 81 MG Tab.EC PO SCH (08:56)
[2021-09-30] MEDS: Cholecalciferol (Vitamin D3) 25 MCG Tab PO SCH (08:56)
[2021-09-30] MEDS: Metoprolol Succinate 25 MG Tab.ER PO SCH (08:57)
[2021-09-30] MEDS: ACETAMINOPHEN 500 MG PO PRN ×2 (08:57→20:51)
[2021-09-30] MEDS: Lisinopril 10 MG Tab PO SCH (08:57)
[2021-09-30] MEDS: predniSONE 1 MG Tab PO SCH (08:57)
[2021-09-30] MEDS: Apixaban 5 MG Tab PO SCH ×2 (08:57→20:48)
[2021-09-30] MEDS: Lidocaine 5% 700 MG Patch TOP SCH (09:03)
[2021-09-30 09:19] LABS: ANION GAP 12.2 mEq/L (7-13); CHLORIDE,CL 104 mmol/L (98-107); SODIUM,NA 144 mmol/L (136-145)
[2021-09-30] MEDS: Ibuprofen 400 MG Tab PO PRN (12:29)
[2021-09-30] MEDS ORDERED: oxyCODONE 5 MG Tab PO PRN (12:32)
--- NOTE | 2021-09-30 12:39 | PCM.PN ---
- General Info Date of Service: 09/30/21 Admission Dx/Problem (Free Text): Pt is doing well. Tolerating her Abx without any issues. She has an appointment with ID tomorrow. - Patient Data Vitals - Most Recent: Last Vital Signs Temp 97.3 F 09/30/21 08:26 Pulse 74 09/30/21 08:57 Resp 20 09/30/21 08:26 BP 146/71 H 09/30/21 08:57 Pulse Ox 98 09/30/21 08:26 Weight - Most Recent: 118 lb Lab Results Last 24 Hours: Laboratory Results - last 24 hr 09/30/21 09/30/21 09/30/21 Range/Units 08:38 08:38 08:38 WBC 6.4 (5.0-10.0) 10^3/uL RBC 4.00 L (4.2-5.4) 10^6/uL Hgb 11.8 L (12.0-16.0) g/dL Hct 38.5 (37.0-47.0) % MCV 96.3 (80-100) fL MCH 29.5 (27.0-34.0) pg MCHC 30.6 L (33.0-35.0) g/dL RDW Not Reportable RDW Coeff of Neo Not Reportable Plt Count 303 (150-450) 10^3/uL MPV Not Reportable Neutrophils % (Manual) 53 (42-75) % Lymphocytes % (Manual) 35 (20-50) % Monocytes % (Manual) 8 (2-8) % Eosinophils % (Manual) 2 (1-3) % Basophils % (Manual) 2 Sodium 144 (136-145) mmol/L Potassium 4.2 (3.5-5.1) mmol/L Chloride 104 (98-107) mmol/L Carbon Dioxide 32 (21-32) mmol/L Anion Gap 12.2 (7-13) mEq/L BUN 23 H (7-18) mg/dL Creatinine 0.88 (0.55-1.02) mg/dL Est Cr Clr Drug Dosing 44.52 mL/min Estimated GFR (MDRD) > 60 BUN/Creatinine Ratio 26.1 (No establ ref range) Glucose 86 (70-99) mg/dL Calcium 9.0 (8.5-10.1) mg/dL Total Bilirubin 0.3 (0.2-1.0) mg/dL AST 20 (15-37) U/L ALT 22 (14-59) U/L Alkaline Phosphatase 121 H (46-116) U/L Creatine Kinase 27 (16-191) U/L C-Reactive Protein 0.6 (0.0-0.9) mg/dL Total Protein 7.5 (6.4-8.2) g/dL Albumin 3.1 L (3.4-5.0) g/dL Globulin 4.4 Albumin/Globulin Ratio 0.70 Med Orders - Current: Current Medications Acetaminophen (Acetaminophen 500 Mg Caplet Own Med) 1,000 mg PO Q6H PRN PRN Reason: Pain 1-3/Fever Last Admin: 09/30/21 08:57 Dose: 1,000 mg Documented by: Apixaban (Apixaban 5 Mg Tab) 2.5 mg PO BID [facility] Last Admin: 09/30/21 08:57 Dose: 2.5 mg Documented by: Aspirin (Aspirin 81 Mg Tab.Ec) 81 mg PO DAILY [facility] Last Admin: 09/30/21 08:56 Dose: 81 mg Documented by: Cholecalciferol (Cholecalciferol (Vitamin D3) 25 Mcg Tab) 25 mcg PO DAILY [facility] Last Admin: 09/30/21 08:56 Dose: 25 mcg Documented by: Docusate Sodium (Docusate Sodium 100 Mg Cap) 100 mg PO BID PRN PRN Reason: Constipation Furosemide (Furosemide 20 Mg Tab) 20 mg PO DAILY PRN PRN Reason: Edema Daptomycin 300 mg/ Sodium (Chloride) 6 mls @ 180 mls/hr IVPUSH DAILY@1800 [facility] Last Admin: 09/29/21 18:02 Dose: 180 mls/hr Documented by: Lidocaine (Lidocaine 5% 700 Mg Patch) 700 mg TOP DAILY [facility] Last Admin: 09/30/21 09:03 Dose: Not Given Documented by: Lisinopril (Lisinopril 10 Mg Tab) 10 mg PO DAILY [facility] Last Admin: 09/30/21 08:57 Dose: 10 mg Documented by: Metoprolol Succinate (Metoprolol Succinate 25 Mg Tab.Er) 25 mg PO DAILY [facility] Last Admin: 09/30/21 08:57 Dose: 25 mg Documented by: Miscellaneous Information (Remove Lidocaine Patch) 1 ea TRDERM BEDTIME [facility] Last Admin: 09/29/21 22:28 Dose: Not Given Documented by: Ondansetron HCl (Ondansetron 4 Mg Tab.Dis) 4 mg PO Q6H PRN PRN Reason: nausea, able to take PO Oxycodone HCl (Oxycodone 5 Mg Tab) 5 mg PO Q6H PRN PRN Reason: Pain Prednisone (Prednisone 1 Mg Tab) 4 mg PO DAILY [facility] Last Admin: 09/30/21 08:57 Dose: 4 mg Documented by: Sodium Chloride (Sodium Chloride 0.9% 10 Ml Syringe) 10 ml FLUSH ASDIRECTED PRN PRN Reason: IV Use Last Admin: 09/27/21 18:33 Dose: 10 ml Documented by: Tamsulosin HCl (Tamsulosin 0.4 Mg Cap.Er) 0.4 mg PO BEDTIME [facility] Last Admin: 09/29/21 21:27 Dose: 0.4 mg Documented by: Discontinued Medications Acetaminophen (Acetaminophen 500 Mg Tab) 1,000 mg PO Q6H PRN PRN Reason: Pain/Fever Daptomycin (Daptomycin 500 Mg Vial) 300 mg IVPUSH DAILY@1800 [facility] Last Admin: 09/25/21 17:41 Dose: 300 mg Documented by: Docusate Sodium (Docusate Sodium 100 Mg Cap) 100 mg PO BID [facility] Last Admin: 09/29/21 08:21 Dose: Not Given Documented by: Daptomycin 300 mg/ Sodium (Chloride) 50 mls @ 100 mls/hr IV Q24H [facility] Stop: 10/01/21 18:01 Last Admin: 09/17/21 20:00 Dose: 100 mls/hr Documented by: Ibuprofen (Ibuprofen 400 Mg Tab) 400 mg PO Q6H PRN PRN Reason: Pain (moderate 4-6) Last Admin: 09/30/21 12:29 Dose: 400 mg Documented by: - Exam Physical Findings Comments:: General: Thin elderly female. In no distress. Pleasant CVS: S1S2 appreciated. RRR. Wound vac dressings in place over the chest wall wound. lungs: clear bilaterally pa: soft, non tender. bowel sounds present ext: no clubbing, cyanosis or edema neuro: no focal deficits. psych: stable mood and affect. - Patient Data Lab Results Last 24 hrs: Laboratory Results - last 24 hr 09/30/21 09/30/2121 Range/Units 08:38 08:38 08:38 WBC 6.4 (5.0-10.0) 10^3/uL RBC 4.00 L (4.2-5.4) 10^6/uL Hgb 11.8 L (12.0-16.0) g/dL Hct 38.5 (37.0-47.0) % MCV 96.3 (80-100) fL MCH 29.5 (27.0-34.0) pg MCHC 30.6 L (33.0-35.0) g/dL RDW Not Reportable RDW Coeff of Neo Not Reportable Plt Count 303 (150-450) 10^3/uL MPV Not Reportable Neutrophils % (Manual) 53 (42-75) % Lymphocytes % (Manual) 35 (20-50) % Monocytes % (Manual) 8 (2-8) % Eosinophils % (Manual) 2 (1-3) % Basophils % (Manual) 2 Sodium 144 (136-145) mmol/L Potassium 4.2 (3.5-5.1) mmol/L Chloride 104 (98-107) mmol/L Carbon Dioxide 32 (21-32) mmol/L Anion Gap 12.2 (7-13) mEq/L BUN 23 H (7-18) mg/dL Creatinine 0.88 (0.55-1.02) mg/dL Est Cr Clr Drug Dosing 44.52 mL/min Estimated GFR (MDRD) > 60 BUN/Creatinine Ratio 26.1 (No establ ref range) Glucose 86 (70-99) mg/dL Calcium 9.0 (8.5-10.1) mg/dL Total Bilirubin 0.3 (0.2-1.0) mg/dL AST 20 (15-37) U/L ALT 22 (14-59) U/L Alkaline Phosphatase 121 H (46-116) U/L Creatine Kinase 27 (16-191) U/L C-Reactive Protein 0.6 (0.0-0.9) mg/dL Total Protein 7.5 (6.4-8.2) g/dL Albumin 3.1 L (3.4-5.0) g/dL Globulin 4.4 Albumin/Globulin Ratio 0.70 Result Diagrams: 09/30/21 08:38 09/30/21 08:38 Sepsis Event Note - Evaluation Sepsis Screening Result: No Definite Risk - Focused Exam Vital Signs: Vital Signs Temp Pulse Pulse Resp BP BP Pulse Ox 09/30/21 08:57 74 146/71 H 09/30/21 08:26 97.3 F 74 20 146/71 H 98 - Problem List Review Problem List Initiated/Reviewed/Updated: Yes - My Orders Last 24 Hours: My Active Orders 09/30/21 12:32 oxyCODONE 5 mg PO Q6H PRN - Plan Plan:: Assessment/Plan: Prakash is a 76-year-old woman who is being admitted here on swing bed with a 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 On January 212020, she had a aortic valve replacement and ascending aortic aneurysm replacement. She did very well post surgery. She presented back to the clinic in follow-up on June 11 complaining of swelling and pain over her sternum. Work-up at that time found abscess, and she was taken back to surgery on June 25 to remove the sternal wire and I&D her abscess and surrounding soft tissues. She had significant issues with wound healing after this initial I&D and debridement was performed, and she had to be hospitalized for healing via wound VAC care. She received daptomycin and ertapenem, and after consultation with infectious disease, was deemed appropriate for her to continue for another 6 weeks of IV daptomycin therapy. Continue local wound care with a wound vac Check weekly labs: CMP, CBC with diff, CRP, ESR ID is following as well. 2. History of paroxysmal atrial fibrillation with rapid ventricular response -She appears to be well rate controlled with metoprolol succinate -Continue apixaban 3. Full code status.
[2021-09-30] MEDS: SODIUM CHLORIDE 0.9% IVPUSH SCH (17:18)
[2021-09-30] MEDS: DAPTOMYCIN IVPUSH SCH (17:18)
[2021-09-30] MEDS: Tamsulosin 0.4 MG Cap.ER PO SCH (20:48)
[2021-10-01] MEDS: Aspirin 81 MG Tab.EC PO SCH (08:54)
[2021-10-01] MEDS: Lidocaine 5% 700 MG Patch TOP SCH (08:54)
[2021-10-01] MEDS: Apixaban 5 MG Tab PO SCH ×2 (08:54→20:25)
[2021-10-01] MEDS: Metoprolol Succinate 25 MG Tab.ER PO SCH (08:54)
[2021-10-01] MEDS: predniSONE 1 MG Tab PO SCH (08:54)
[2021-10-01] MEDS: Lisinopril 10 MG Tab PO SCH (08:55)
[2021-10-01] MEDS: Cholecalciferol (Vitamin D3) 25 MCG Tab PO SCH (08:55)
[2021-10-01] MEDS: SODIUM CHLORIDE 0.9% IVPUSH SCH (18:10)
[2021-10-01] MEDS: DAPTOMYCIN IVPUSH SCH (18:10)
[2021-10-01] MEDS: Tamsulosin 0.4 MG Cap.ER PO SCH (20:25)
[2021-10-01] MEDS: ACETAMINOPHEN 500 MG PO PRN (20:26)
[2021-10-02] MEDS: Sodium Chloride 0.9% 10 ML Syringe FLUSH PRN (03:45)
[2021-10-02] MEDS: Cholecalciferol (Vitamin D3) 25 MCG Tab PO SCH (09:48)
[2021-10-02] MEDS: Apixaban 5 MG Tab PO SCH ×2 (09:49→21:17)
[2021-10-02] MEDS: predniSONE 1 MG Tab PO SCH (09:49)
[2021-10-02] MEDS: Lidocaine 5% 700 MG Patch TOP SCH ×2 (09:50→09:56)
[2021-10-02] MEDS: ACETAMINOPHEN 500 MG PO PRN ×2 (09:51→21:18)
[2021-10-02] MEDS: Lisinopril 10 MG Tab PO SCH (09:54)
[2021-10-02] MEDS: Metoprolol Succinate 25 MG Tab.ER PO SCH (09:54)
[2021-10-02] MEDS: Aspirin 81 MG Tab.EC PO SCH (10:29)
[2021-10-02] MEDS: Ibuprofen 200 MG Tab PO PRN (15:06)
[2021-10-02] MEDS: SODIUM CHLORIDE 0.9% IVPUSH SCH (18:01)
[2021-10-02] MEDS: DAPTOMYCIN IVPUSH SCH (18:01)
[2021-10-02] MEDS: Tamsulosin 0.4 MG Cap.ER PO SCH (21:17)
[2021-10-03] MEDS: ACETAMINOPHEN 500 MG PO PRN ×2 (10:07→20:25)
[2021-10-03] MEDS: Cholecalciferol (Vitamin D3) 25 MCG Tab PO SCH (10:08)
[2021-10-03] MEDS: Aspirin 81 MG Tab.EC PO SCH (10:09)
[2021-10-03] MEDS: predniSONE 1 MG Tab PO SCH (10:09)
[2021-10-03] MEDS: Metoprolol Succinate 25 MG Tab.ER PO SCH (10:10)
[2021-10-03] MEDS: Lisinopril 10 MG Tab PO SCH (10:10)
[2021-10-03] MEDS: Lidocaine 5% 700 MG Patch TOP SCH (10:10)
[2021-10-03] MEDS: Apixaban 5 MG Tab PO SCH ×2 (10:11→20:27)
[2021-10-03] MEDS: SODIUM CHLORIDE 0.9% IVPUSH SCH (17:39)
[2021-10-03] MEDS: DAPTOMYCIN IVPUSH SCH (17:39)
[2021-10-03] MEDS: Tamsulosin 0.4 MG Cap.ER PO SCH (20:27)
[2021-10-04] MEDS: Apixaban 5 MG Tab PO SCH ×2 (08:34→21:29)
[2021-10-04] MEDS: Aspirin 81 MG Tab.EC PO SCH (08:35)
[2021-10-04] MEDS: Metoprolol Succinate 25 MG Tab.ER PO SCH (08:35)
[2021-10-04] MEDS: Cholecalciferol (Vitamin D3) 25 MCG Tab PO SCH (08:36)
[2021-10-04] MEDS: Lisinopril 10 MG Tab PO SCH (08:36)
[2021-10-04] MEDS: ACETAMINOPHEN 500 MG PO PRN ×2 (08:37→21:31)
[2021-10-04] MEDS: predniSONE 1 MG Tab PO SCH (08:37)
[2021-10-04] MEDS: Lidocaine 5% 700 MG Patch TOP SCH (08:39)
[2021-10-04] MEDS: Ibuprofen 200 MG Tab PO PRN (12:46)
[2021-10-04] MEDS: SODIUM CHLORIDE 0.9% IVPUSH SCH (18:10)
[2021-10-04] MEDS: DAPTOMYCIN IVPUSH SCH (18:10)
[2021-10-04] MEDS: Tamsulosin 0.4 MG Cap.ER PO SCH (21:30)
[2021-10-05] MEDS: Metoprolol Succinate 25 MG Tab.ER PO SCH (09:27)
[2021-10-05] MEDS: Aspirin 81 MG Tab.EC PO SCH (09:27)
[2021-10-05] MEDS: Cholecalciferol (Vitamin D3) 25 MCG Tab PO SCH (09:27)
[2021-10-05] MEDS: Apixaban 5 MG Tab PO SCH ×2 (09:27→21:37)
[2021-10-05] MEDS: Lisinopril 10 MG Tab PO SCH (09:27)
[2021-10-05] MEDS: predniSONE 1 MG Tab PO SCH (09:28)
[2021-10-05] MEDS: Lidocaine 5% 700 MG Patch TOP SCH (09:28)
[2021-10-05] MEDS: ACETAMINOPHEN 500 MG PO PRN (09:29)
[2021-10-05] MEDS: SODIUM CHLORIDE 0.9% IVPUSH SCH (17:48)
[2021-10-05] MEDS: DAPTOMYCIN IVPUSH SCH (17:48)
[2021-10-05] MEDS: Tamsulosin 0.4 MG Cap.ER PO SCH (21:38)
[2021-10-06] MEDS: ACETAMINOPHEN 500 MG PO PRN ×2 (09:16→21:07)
[2021-10-06] MEDS: Aspirin 81 MG Tab.EC PO SCH (09:17)
[2021-10-06] MEDS: Apixaban 5 MG Tab PO SCH ×2 (09:17→21:06)
[2021-10-06] MEDS: Cholecalciferol (Vitamin D3) 25 MCG Tab PO SCH (09:17)
[2021-10-06] MEDS: Metoprolol Succinate 25 MG Tab.ER PO SCH (09:18)
[2021-10-06] MEDS: Lisinopril 10 MG Tab PO SCH (09:19)
[2021-10-06] MEDS: predniSONE 1 MG Tab PO SCH (09:19)
[2021-10-06] MEDS: Lidocaine 5% 700 MG Patch TOP SCH (09:20)
[2021-10-06] MEDS: DAPTOMYCIN IVPUSH SCH (18:01)
[2021-10-06] MEDS: SODIUM CHLORIDE 0.9% IVPUSH SCH (18:01)
[2021-10-06] MEDS: Tamsulosin 0.4 MG Cap.ER PO SCH (21:06)
[2021-10-07] MEDS: Lisinopril 10 MG Tab PO SCH (09:13)
[2021-10-07] MEDS: predniSONE 1 MG Tab PO SCH (09:14)
[2021-10-07] MEDS: Apixaban 5 MG Tab PO SCH ×2 (09:14→21:30)
[2021-10-07] MEDS: Aspirin 81 MG Tab.EC PO SCH (09:15)
[2021-10-07] MEDS: Metoprolol Succinate 25 MG Tab.ER PO SCH (09:15)
[2021-10-07] MEDS: Cholecalciferol (Vitamin D3) 25 MCG Tab PO SCH (09:15)
[2021-10-07] MEDS: Lidocaine 5% 700 MG Patch TOP SCH (09:18)
[2021-10-07] MEDS: ACETAMINOPHEN 500 MG PO PRN ×2 (09:19→21:31)
[2021-10-07 12:45] LABS: ANION GAP 11.3 mEq/L (7-13)
--- NOTE | 2021-10-07 13:42 | PCM.PN ---
- General Info Date of Service: 10/07/21 Subjective Update: feeling well tolerating wound vac no associated fever, chills eating ok no abd pain, no sob up and walking well with walker participating in pt/ot Functional Status: Reports: Pain Controlled, Tolerating Diet, Ambulating - Review of Systems General: Reports: Weakness. Denies: Fever Pulmonary: Denies: Shortness of Breath Cardiovascular: Denies: Chest Pain, Edema Genitourinary: Denies: Dysuria - Patient Data Vitals - Most Recent: Last Vital Signs Temp 97.0 F 10/07/21 07:58 Pulse 70 10/07/21 09:15 Resp 18 10/07/21 07:58 BP 140/70 10/07/21 09:15 Pulse Ox 96 10/07/21 07:58 Weight - Most Recent: 119 lb 3.2 oz I&O - Last 24 Hours: Intake & Output 10/06/21 10/07/21 10/07/21 22:59 06:59 14:59 Intake Total 505 400 Balance 505 400 Lab Results Last 24 Hours: Laboratory Results - last 24 hr 10/07/21 10/07/21 Range/Units 12:20 12:20 WBC 7.7 (5.0-10.0) 10^3/uL RBC 3.92 L (4.2-5.4) 10^6/uL Hgb 11.6 L (12.0-16.0) g/dL Hct 37.7 (37.0-47.0) % MCV 96.2 (80-100) fL MCH 29.6 (27.0-34.0) pg MCHC 30.8 L (33.0-35.0) g/dL Plt Count 252 (150-450) 10^3/uL Neut % (Auto) 75.6 H (42.2-75.2) % Lymph % (Auto) 16.4 L (20.5-50.1) % [place] % (Auto) 5.5 (2-8) % Eos % (Auto) 2.0 (1.0-3.0) % Baso % (Auto) 0.5 (0.0-1.0) % Sodium 142 (136-145) mmol/L Potassium 4.3 (3.5-5.1) mmol/L Chloride 103 (98-107) mmol/L Carbon Dioxide 32 (21-32) mmol/L Anion Gap 11.3 (7-13) mEq/L BUN 24 H (7-18) mg/dL Creatinine 0.92 (0.55-1.02) mg/dL Est Cr Clr Drug Dosing 43.02 mL/min Estimated GFR (MDRD) 59 Glucose 93 (70-99) mg/dL Calcium 8.8 (8.5-10.1) mg/dL Med Orders - Current: Current Medications Acetaminophen (Acetaminophen 500 Mg Caplet Own Med) 1,000 mg PO Q6H PRN PRN Reason: Pain 1-3/Fever Last Admin: 10/07/21 09:19 Dose: 1,000 mg Documented by: Apixaban (Apixaban 5 Mg Tab) 2.5 mg PO BID [facility] Last Admin: 10/07/21 09:14 Dose: 2.5 mg Documented by: Aspirin (Aspirin 81 Mg Tab.Ec) 81 mg PO DAILY [facility] Last Admin: 10/07/21 09:15 Dose: 81 mg Documented by: Cholecalciferol (Cholecalciferol (Vitamin D3) 25 Mcg Tab) 25 mcg PO DAILY [facility] Last Admin: 10/07/21 09:15 Dose: 25 mcg Documented by: Docusate Sodium (Docusate Sodium 100 Mg Cap) 100 mg PO BID PRN PRN Reason: Constipation Furosemide (Furosemide 20 Mg Tab) 20 mg PO DAILY PRN PRN Reason: Edema Daptomycin 300 mg/ Sodium (Chloride) 6 mls @ 180 mls/hr IVPUSH DAILY@1800 [facility] Last Admin: 10/06/21 18:01 Dose: 180 mls/hr Documented by: Ibuprofen (Ibuprofen 200 Mg Tab) 200 mg PO DAILY PRN PRN Reason: with wound vac dressing change Last Admin: 10/04/21 12:46 Dose: 200 mg Documented by: Lidocaine (Lidocaine 5% 700 Mg Patch) 700 mg TOP DAILY [facility] Last Admin: 10/07/21 09:18 Dose: Not Given Documented by: Lisinopril (Lisinopril 10 Mg Tab) 10 mg PO DAILY [facility] Last Admin: 10/07/21 09:13 Dose: 10 mg Documented by: Metoprolol Succinate (Metoprolol Succinate 25 Mg Tab.Er) 25 mg PO DAILY [facility] Last Admin: 10/07/21 09:15 Dose: 25 mg Documented by: Miscellaneous Information (Remove Lidocaine Patch) 1 ea TRDERM BEDTIME [facility] Last Admin: 10/06/21 21:08 Dose: 1 ea Documented by: Ondansetron HCl (Ondansetron 4 Mg Tab.Dis) 4 mg PO Q6H PRN PRN Reason: nausea, able to take PO Oxycodone HCl (Oxycodone 5 Mg Tab) 5 mg PO Q6H PRN PRN Reason: Pain Prednisone (Prednisone 1 Mg Tab) 4 mg PO DAILY [facility] Last Admin: 10/07/21 09:14 Dose: 4 mg Documented by: Sodium Chloride (Sodium Chloride 0.9% 10 Ml Syringe) 10 ml FLUSH ASDIRECTED PRN PRN Reason: IV Use Last Admin: 10/02/21 03:45 Dose: 10 ml Documented by: Tamsulosin HCl (Tamsulosin 0.4 Mg Cap.Er) 0.4 mg PO BEDTIME [facility] Last Admin: 10/06/21 21:06 Dose: 0.4 mg Documented by: Discontinued Medications Acetaminophen (Acetaminophen 500 Mg Tab) 1,000 mg PO Q6H PRN PRN Reason: Pain/Fever Daptomycin (Daptomycin 500 Mg Vial) 300 mg IVPUSH DAILY@1800 [facility] Last Admin: 09/25/21 17:41 Dose: 300 mg Documented by: Docusate Sodium (Docusate Sodium 100 Mg Cap) 100 mg PO BID [facility] Last Admin: 09/29/21 08:21 Dose: Not Given Documented by: Daptomycin 300 mg/ Sodium (Chloride) 50 mls @ 100 mls/hr IV Q24H [facility] Stop: 10/01/21 18:01 Last Admin: 09/17/21 20:00 Dose: 100 mls/hr Documented by: Ibuprofen (Ibuprofen 400 Mg Tab) 400 mg PO Q6H PRN PRN Reason: Pain (moderate 4-6) Last Admin: 09/30/21 12:29 Dose: 400 mg Documented by: - Exam Quality Assessment: No: Supplemental Oxygen General: Alert, Oriented Lungs: Clear to Auscultation, Normal Respiratory Effort Cardiovascular: Regular Rate, Regular Rhythm Extremities: No Pedal Edema Wound/Incisions: Other (sternal wound vac) - Patient Data Lab Results Last 24 hrs: Laboratory Results - last 24 hr 10/07/21 10/07/21 Range/Units 12:20 12:20 WBC 7.7 (5.0-10.0) 10^3/uL RBC 3.92 L (4.2-5.4) 10^6/uL Hgb 11.6 L (12.0-16.0) g/dL Hct 37.7 (37.0-47.0) % MCV 96.2 (80-100) fL MCH 29.6 (27.0-34.0) pg MCHC 30.8 L (33.0-35.0) g/dL Plt Count 252 (150-450) 10^3/uL Neut % (Auto) 75.6 H (42.2-75.2) % Lymph % (Auto) 16.4 L (20.5-50.1) % [place] % (Auto) 5.5 (2-8) % Eos % (Auto) 2.0 (1.0-3.0) % Baso % (Auto) 0.5 (0.0-1.0) % Sodium 142 (136-145) mmol/L Potassium 4.3 (3.5-5.1) mmol/L Chloride 103 (98-107) mmol/L Carbon Dioxide 32 (21-32) mmol/L Anion Gap 11.3 (7-13) mEq/L BUN 24 H (7-18) mg/dL Creatinine 0.92 (0.55-1.02) mg/dL Est Cr Clr Drug Dosing 43.02 mL/min Estimated GFR (MDRD) 59 Glucose 93 (70-99) mg/dL Calcium 8.8 (8.5-10.1) mg/dL Result Diagrams: 10/07/21 12:20 10/07/21 12:20 Sepsis Event Note - Evaluation Sepsis Screening Result: No Definite Risk - Focused Exam Vital Signs: Vital Signs Temp Pulse Pulse Resp BP BP Pulse Ox 10/07/21 09:15 70 140/70 10/07/21 09:13 140/70 10/07/21 07:58 97.0 F 70 18 140/70 96 - Problem List & Annotations (1) Sternal wound infection SNOMED Code(s): 40280796 Code(s): S21.101A - UNSP OPN WND R FRNT WL OF THORAX W/O PENET THOR CAVITY, INIT; L08.9 - LOCAL INFECTION OF THE SKIN AND SUBCUTANEOUS TISSUE, UNSP Status: Acute Current Visit: Yes (2) Wound of sternal region SNOMED Code(s): 793203798 Code(s): S21.109A - UNSP OPN WND UNSP FRNT WALL OF THRX W/O PENET THOR CAV, INIT Status: Acute Current Visit: Yes - Problem List Review Problem List Initiated/Reviewed/Updated: Yes - Plan Plan:: Assessment/Plan: Prakash is a 76-year-old woman who is being admitted here on swing bed with a 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 On January 212020, she had a aortic valve replacement and ascending aortic aneurysm replacement. She did very well post surgery. She presented back to the clinic in follow-up on June 11 complaining of swelling and pain over her sternum. Work-up at that time found abscess, and she was taken back to surgery on June 25 to remove the sternal wire and I&D her abscess and surrounding soft tissues. She had significant issues with wound healing after this initial I&D and debridement was performed, and she had to be hospitalized for healing via wound VAC care. She received daptomycin and ertapenem, and after consultation with infectious disease, was deemed appropriate for her to continue for another 6 weeks of IV daptomycin therapy. she is tolerating wound care and IV ABx well Check weekly labs: CMP, CBC with diff, CRP, ESR plan for ID f/up and wound f/up this week 2. History of paroxysmal atrial fibrillation with rapid ventricular response -She appears to be well rate controlled with metoprolol succinate -Continue apixaban 3. cont pt/ot
[2021-10-07] MEDS: SODIUM CHLORIDE 0.9% IVPUSH SCH (18:45)
[2021-10-07] MEDS: DAPTOMYCIN IVPUSH SCH (18:45)
[2021-10-07] MEDS: Tamsulosin 0.4 MG Cap.ER PO SCH (21:30)
[2021-10-08 07:20] LABS: ANION GAP 10.1 mEq/L (7-13); CHLORIDE,CL 106 mmol/L (98-107); SODIUM,NA 142 mmol/L (136-145)
[2021-10-08] MEDS: Lisinopril 10 MG Tab PO SCH (09:18)
[2021-10-08] MEDS: Apixaban 5 MG Tab PO SCH ×2 (09:18→20:44)
[2021-10-08] MEDS: Cholecalciferol (Vitamin D3) 25 MCG Tab PO SCH (09:19)
[2021-10-08] MEDS: Metoprolol Succinate 25 MG Tab.ER PO SCH (09:19)
[2021-10-08] MEDS: predniSONE 1 MG Tab PO SCH (09:19)
[2021-10-08] MEDS: Aspirin 81 MG Tab.EC PO SCH (09:19)
[2021-10-08] MEDS: SODIUM CHLORIDE 0.9% IVPUSH SCH (18:18)
[2021-10-08] MEDS: DAPTOMYCIN IVPUSH SCH (18:18)
[2021-10-08] MEDS: Sodium Chloride 0.9% 10 ML Syringe FLUSH PRN (18:19)
[2021-10-08] MEDS: Tamsulosin 0.4 MG Cap.ER PO SCH (20:45)
[2021-10-08] MEDS: ACETAMINOPHEN 500 MG PO PRN (20:45)
[2021-10-08] MEDS: Lidocaine 5% 700 MG Patch TOP SCH (20:48)
[2021-10-09] MEDS: Lidocaine 5% 700 MG Patch TOP SCH ×2 (06:29→09:00)
[2021-10-09] MEDS: Lisinopril 10 MG Tab PO SCH (08:08)
[2021-10-09] MEDS: Cholecalciferol (Vitamin D3) 25 MCG Tab PO SCH (08:08)
[2021-10-09] MEDS: Aspirin 81 MG Tab.EC PO SCH (08:09)
[2021-10-09] MEDS: Apixaban 5 MG Tab PO SCH ×2 (08:09→20:36)
[2021-10-09] MEDS: Metoprolol Succinate 25 MG Tab.ER PO SCH (08:10)
[2021-10-09] MEDS: predniSONE 1 MG Tab PO SCH (08:10)
[2021-10-09] MEDS: SODIUM CHLORIDE 0.9% IVPUSH SCH (18:13)
[2021-10-09] MEDS: DAPTOMYCIN IVPUSH SCH (18:13)
[2021-10-09] MEDS: ACETAMINOPHEN 500 MG PO PRN (20:35)
[2021-10-09] MEDS: Tamsulosin 0.4 MG Cap.ER PO SCH (20:36)
[2021-10-10] MEDS: Apixaban 5 MG Tab PO SCH ×2 (08:17→20:23)
[2021-10-10] MEDS: Aspirin 81 MG Tab.EC PO SCH (08:17)
[2021-10-10] MEDS: predniSONE 1 MG Tab PO SCH (08:18)
[2021-10-10] MEDS: Metoprolol Succinate 25 MG Tab.ER PO SCH (08:18)
[2021-10-10] MEDS: Lisinopril 10 MG Tab PO SCH (08:19)
[2021-10-10] MEDS: Cholecalciferol (Vitamin D3) 25 MCG Tab PO SCH (08:19)
[2021-10-10] MEDS: ACETAMINOPHEN 500 MG PO PRN ×2 (08:20→20:23)
[2021-10-10] MEDS: Lidocaine 5% 700 MG Patch TOP SCH (09:43)
[2021-10-10] MEDS: DAPTOMYCIN IVPUSH SCH (17:53)
[2021-10-10] MEDS: SODIUM CHLORIDE 0.9% IVPUSH SCH (17:53)
[2021-10-10] MEDS: Tamsulosin 0.4 MG Cap.ER PO SCH (20:23)
[2021-10-11] MEDS: ACETAMINOPHEN 500 MG PO PRN ×2 (08:21→21:21)
[2021-10-11] MEDS: predniSONE 1 MG Tab PO SCH (08:24)
[2021-10-11] MEDS: Aspirin 81 MG Tab.EC PO SCH (08:25)
[2021-10-11] MEDS: Metoprolol Succinate 25 MG Tab.ER PO SCH (08:25)
[2021-10-11] MEDS: Cholecalciferol (Vitamin D3) 25 MCG Tab PO SCH (08:26)
[2021-10-11] MEDS: Apixaban 5 MG Tab PO SCH ×2 (08:26→21:20)
[2021-10-11] MEDS: Lisinopril 10 MG Tab PO SCH (08:26)
[2021-10-11] MEDS: Lidocaine 5% 700 MG Patch TOP SCH (08:27)
[2021-10-11] MEDS: Ibuprofen 200 MG Tab PO PRN (12:25)
[2021-10-11] MEDS: DAPTOMYCIN IVPUSH SCH (18:18)
[2021-10-11] MEDS: SODIUM CHLORIDE 0.9% IVPUSH SCH (18:18)
[2021-10-11] MEDS: Tamsulosin 0.4 MG Cap.ER PO SCH (21:20)
[2021-10-12] MEDS: Aspirin 81 MG Tab.EC PO SCH (09:52)
[2021-10-12] MEDS: Apixaban 5 MG Tab PO SCH ×2 (09:53→20:00)
[2021-10-12] MEDS: Metoprolol Succinate 25 MG Tab.ER PO SCH (09:53)
[2021-10-12] MEDS: Lisinopril 10 MG Tab PO SCH (09:53)
[2021-10-12] MEDS: Cholecalciferol (Vitamin D3) 25 MCG Tab PO SCH (09:53)
[2021-10-12] MEDS: predniSONE 1 MG Tab PO SCH (09:54)
[2021-10-12] MEDS: Lidocaine 5% 700 MG Patch TOP SCH (09:54)
[2021-10-12] MEDS: SODIUM CHLORIDE 0.9% IVPUSH SCH (18:14)
[2021-10-12] MEDS: DAPTOMYCIN IVPUSH SCH (18:14)
[2021-10-12] MEDS: ACETAMINOPHEN 500 MG PO PRN (19:52)
[2021-10-12] MEDS: Tamsulosin 0.4 MG Cap.ER PO SCH (20:00)
[2021-10-13] MEDS: Metoprolol Succinate 25 MG Tab.ER PO SCH (08:57)
[2021-10-13] MEDS: Cholecalciferol (Vitamin D3) 25 MCG Tab PO SCH (08:57)
[2021-10-13] MEDS: Lisinopril 10 MG Tab PO SCH (08:58)
[2021-10-13] MEDS: Apixaban 5 MG Tab PO SCH ×2 (08:58→22:01)
[2021-10-13] MEDS: Aspirin 81 MG Tab.EC PO SCH (08:59)
[2021-10-13] MEDS: predniSONE 1 MG Tab PO SCH (08:59)
[2021-10-13] MEDS: Lidocaine 5% 700 MG Patch TOP SCH (09:00)
[2021-10-13] MEDS: ACETAMINOPHEN 500 MG PO PRN ×2 (09:01→22:23)
[2021-10-13] MEDS: DAPTOMYCIN IVPUSH SCH (17:55)
[2021-10-13] MEDS: SODIUM CHLORIDE 0.9% IVPUSH SCH (17:55)
[2021-10-13] MEDS: Tamsulosin 0.4 MG Cap.ER PO SCH (22:01)
[2021-10-14] MEDS: Apixaban 5 MG Tab PO SCH ×2 (08:30→20:51)
[2021-10-14] MEDS: Aspirin 81 MG Tab.EC PO SCH (08:30)
[2021-10-14] MEDS: Cholecalciferol (Vitamin D3) 25 MCG Tab PO SCH (08:30)
[2021-10-14] MEDS: Metoprolol Succinate 25 MG Tab.ER PO SCH (08:31)
[2021-10-14] MEDS: predniSONE 1 MG Tab PO SCH (08:31)
[2021-10-14] MEDS: Lisinopril 10 MG Tab PO SCH (08:32)
[2021-10-14] MEDS: Lidocaine 5% 700 MG Patch TOP SCH ×2 (08:33→11:13)
[2021-10-14] MEDS: ACETAMINOPHEN 500 MG PO PRN ×2 (08:36→20:53)
[2021-10-14] MEDS: DAPTOMYCIN IVPUSH SCH (17:29)
[2021-10-14] MEDS: SODIUM CHLORIDE 0.9% IVPUSH SCH (17:29)
[2021-10-14] MEDS: Tamsulosin 0.4 MG Cap.ER PO SCH (20:51)
[2021-10-14] MEDS: Sodium Chloride 0.9% 10 ML Syringe FLUSH PRN (20:56)
[2021-10-15 07:06] LABS: ANION GAP 12.1 mEq/L (7-13); CHLORIDE,CL 106 mmol/L (98-107); SODIUM,NA 143 mmol/L (136-145)
[2021-10-15] MEDS: Lisinopril 10 MG Tab PO SCH (09:06)
[2021-10-15] MEDS: Metoprolol Succinate 25 MG Tab.ER PO SCH (09:06)
[2021-10-15] MEDS: Apixaban 5 MG Tab PO SCH (09:07)
[2021-10-15] MEDS: Cholecalciferol (Vitamin D3) 25 MCG Tab PO SCH (09:07)
[2021-10-15] MEDS: Aspirin 81 MG Tab.EC PO SCH (09:07)
[2021-10-15] MEDS: Lidocaine 5% 700 MG Patch TOP SCH (09:07)
[2021-10-15] MEDS: predniSONE 1 MG Tab PO SCH (09:08)
--- NOTE | 2021-10-15 11:12 | PCM.DCSUM1 ---
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 On January 212020, she had a aortic valve replacement and ascending aortic aneurysm replacement. She did very well post surgery. She presented back to the clinic in follow-up on June 11 complaining of swelling and pain over her sternum. Work-up at that time found abscess, and she was taken back to surgery on June 25 to remove the sternal wire and I&D her abscess and surrounding soft tissues. She had significant issues with wound healing after this initial I&D and debridement was performed, and she had to be hospitalized for healing via wound VAC care. She received daptomycin and ertapenem, and after consultation with infectious disease, was deemed appropriate for her to continue for another 6 weeks of IV daptomycin therapy. she was admitted to swing bed for wound care and IV ABx. She received pt and pt services wound has improved and wound vac was discontinued she will follow up as out pt for continued IV ABx noted to have htn lisinopril was increased History of paroxysmal atrial fibrillation with rapid ventricular response -She appears to be well rate controlled with metoprolol succinate -Continue apixaban Diagnosis: Stroke: No - Discharge Data Discharge Date: 10/15/21 Discharge Disposition: Home, Self-Care 01 Condition: Good - Referral to Home Health Primary Care Physician: PCP None - Discharge Diagnosis/Problem(s) (1) Sternal wound infection SNOMED Code(s): 41418034 ICD Code: S21.101A - UNSP OPN WND R FRNT WL OF THORAX W/O PENET THOR CAVITY, INIT; L08.9 - LOCAL INFECTION OF THE SKIN AND SUBCUTANEOUS TISSUE, UNSP Status: Acute Current Visit: Yes (2) Wound of sternal region SNOMED Code(s): 171503296 ICD Code: S21.109A - UNSP OPN WND UNSP FRNT WALL OF THRX W/O PENET THOR CAV, INIT Status: Acute Current Visit: Yes - Patient Summary/Data Consults: Consultations 09/18/21 08:25 Consult to Physical Therapy [PT Evaluation and Treatment] [CONS] Routine 09/18/21 08:26 Consult to Occupational Therapy [OT Evaluation and Treatment] [CONS] Routine - Patient Instructions Diet: Heart Healthy Diet Activity: As Tolerated - Discharge Plan *PRESCRIPTION DRUG MONITORING PROGRAM REVIEWED*: Not Applicable *COPY OF PRESCRIPTION DRUG MONITORING REPORT IN PATIENT NATHANAEL: Not Applicable Prescriptions/Med Rec: Apixaban [Eliquis] 2.5 mg PO BID #60 tablet Lidocaine 5% [Lidoderm 5%] 700 mg TOP DAILY #6 patch lisinopriL [Prinivil] 20 mg PO DAILY #30 tablet Metoprolol Succinate [Toprol XL] 25 mg PO DAILY #30 Home Medications: Home Meds Aspirin [Adult Aspirin Regimen] 81 mg PO DAILY 03/06/21 [History] predniSONE [Prednisone] 4 mg PO DAILY 03/06/21 [History] Cholecalciferol (Vitamin D3) [Vitamin D3] 1,000 unit PO DAILY 09/17/21 [History] Lidocaine 4% [Aspercreme 4%] 1 each TP DAILY PRN 09/17/21 [History] Acetaminophen [Tylenol Extra Strength] 1,000 mg PO Q6HR PRN 09/18/21 [History] Apixaban [Eliquis] 2.5 mg PO BID #60 tablet 10/15/21 [Rx] Ibuprofen [Motrin] 200 mg PO DAILY PRN tablet 10/15/21 [Rx] Lidocaine 5% [Lidoderm 5%] 700 mg TOP DAILY #6 patch 10/15/21 [Rx] Metoprolol Succinate [Toprol XL] 25 mg PO DAILY #30 10/15/21 [Rx] lisinopriL [Prinivil] 20 mg PO DAILY #30 tablet 10/15/21 [Rx] Oxygen Therapy Mode: Room Air - Discharge Summary/Plan Comment DC Time >30 min.: No Total # of Minutes for Discharge Time: 20 min - General Info Date of Service: 10/15/21 Admission Dx/Problem (Free Text: Sternal wound with osteomyelitis Subjective Update: feeling well tolerating wound vac happy to be discharged will have access to transportation daily for IV ABx - Review of Systems General: Reports: Weakness (improved). Denies: Fever Pulmonary: Denies: Shortness of Breath Cardiovascular: Denies: Chest Pain, Edema - Patient Data Vitals - Most Recent: Last Vital Signs Temp 98.5 F 10/15/21 08:06 Pulse 70 10/15/21 09:06 Resp 20 10/15/21 08:06 BP 151/83 H 10/15/21 09:06 Pulse Ox 98 10/15/21 08:06 Weight - Most Recent: 119 lb 3.2 oz I&O - Last 24 hours: Intake & Output 10/14/21 10/15/21 10/15/21 22:59 06:59 14:59 Intake Total 350 Balance 350 Lab Results - Last 24 hrs: Laboratory Results - last 24 hr 10/15/21 10/15/21 10/15/21 Range/Units 05:59 05:59 06:35 WBC 6.2 (5.0-10.0) 10^3/uL RBC 3.66 L (4.2-5.4) 10^6/uL Hgb 10.9 L (12.0-16.0) g/dL Hct 35.2 L (37.0-47.0) % MCV 96.2 (80-100) fL MCH 29.8 (27.0-34.0) pg MCHC 31.0 L (33.0-35.0) g/dL Plt Count 251 (150-450) 10^3/uL Neut % (Auto) 55.4 (42.2-75.2) % Lymph % (Auto) 33.2 (20.5-50.1) % [place] % (Auto) 6.6 (2-8) % Eos % (Auto) 4.2 H (1.0-3.0) % Baso % (Auto) 0.6 (0.0-1.0) % ESR 28 H (0-20) mm/hr Sodium 143 (136-145) mmol/L Potassium 4.1 (3.5-5.1) mmol/L Chloride 106 (98-107) mmol/L Carbon Dioxide 29 (21-32) mmol/L Anion Gap 12.1 (7-13) mEq/L BUN 23 H (7-18) mg/dL Creatinine 0.85 (0.55-1.02) mg/dL Est Cr Clr Drug Dosing 46.56 mL/min Estimated GFR (MDRD) > 60 BUN/Creatinine Ratio 27.1 (No establ ref range) Glucose 78 (70-99) mg/dL Calcium 8.6 (8.5-10.1) mg/dL Total Bilirubin 0.4 (0.2-1.0) mg/dL AST 17 (15-37) U/L ALT 22 (14-59) U/L Alkaline Phosphatase 103 (46-116) U/L Creatine Kinase 29 (16-191) U/L C-Reactive Protein 0.7 (0.0-0.9) mg/dL Total Protein 6.9 (6.4-8.2) g/dL Albumin 2.9 L (3.4-5.0) g/dL Globulin 4.0 Albumin/Globulin Ratio 0.73 SARS-CoV-2 RNA (MATILDE) Negative (NEGATIVE) Med Orders - Current: Current Medications Acetaminophen (Acetaminophen 500 Mg Caplet Own Med) 1,000 mg PO Q6H PRN PRN Reason: Pain 1-3/Fever Last Admin: 10/14/21 20:53 Dose: 1,000 mg Documented by: Apixaban (Apixaban 5 Mg Tab) 2.5 mg PO BID [facility] Last Admin: 10/15/21 09:07 Dose: 2.5 mg Documented by: Aspirin (Aspirin 81 Mg Tab.Ec) 81 mg PO DAILY [facility] Last Admin: 10/15/21 09:07 Dose: 81 mg Documented by: Cholecalciferol (Cholecalciferol (Vitamin D3) 25 Mcg Tab) 25 mcg PO DAILY [facility] Last Admin: 10/15/21 09:07 Dose: 25 mcg Documented by: Docusate Sodium (Docusate Sodium 100 Mg Cap) 100 mg PO BID PRN PRN Reason: Constipation Furosemide (Furosemide 20 Mg Tab) 20 mg PO DAILY PRN PRN Reason: Edema Daptomycin 300 mg/ Sodium (Chloride) 6 mls @ 180 mls/hr IVPUSH ONETIME ONE Stop: 10/15/21 12:01 Ibuprofen (Ibuprofen 200 Mg Tab) 200 mg PO DAILY PRN PRN Reason: with wound vac dressing change Last Admin: 10/11/21 12:25 Dose: 200 mg Documented by: Lidocaine (Lidocaine 5% 700 Mg Patch) 700 mg TOP DAILY [facility] Last Admin: 10/15/21 09:07 Dose: Not Given Documented by: Lisinopril (Lisinopril 10 Mg Tab) 20 mg PO DAILY [facility] Metoprolol Succinate (Metoprolol Succinate 25 Mg Tab.Er) 25 mg PO DAILY [facility] Last Admin: 10/15/21 09:06 Dose: 25 mg Documented by: Miscellaneous Information (Remove Lidocaine Patch) 1 hermann KIM BEDTIME [facility] Last Admin: 10/14/21 20:53 Dose: Not Given Documented by: Ondansetron HCl (Ondansetron 4 Mg Tab.Dis) 4 mg PO Q6H PRN PRN Reason: nausea, able to take PO Oxycodone HCl (Oxycodone 5 Mg Tab) 5 mg PO Q6H PRN PRN Reason: Pain Prednisone (Prednisone 1 Mg Tab) 4 mg PO DAILY [facility] Last Admin: 10/15/21 09:08 Dose: Not Given Documented by: Sodium Chloride (Sodium Chloride 0.9% 10 Ml Syringe) 10 ml FLUSH ASDIRECTED PRN PRN Reason: IV Use Last Admin: 10/14/21 20:56 Dose: 10 ml Documented by: Tamsulosin HCl (Tamsulosin 0.4 Mg Cap.Er) 0.4 mg PO BEDTIME [facility] Last Admin: 10/14/21 20:51 Dose: 0.4 mg Documented by: Discontinued Medications Acetaminophen (Acetaminophen 500 Mg Tab) 1,000 mg PO Q6H PRN PRN Reason: Pain/Fever Daptomycin (Daptomycin 500 Mg Vial) 300 mg IVPUSH DAILY@1800 [facility] Last Admin: 09/25/21 17:41 Dose: 300 mg Documented by: Docusate Sodium (Docusate Sodium 100 Mg Cap) 100 mg PO BID [facility] Last Admin: 09/29/21 08:21 Dose: Not Given Documented by: Daptomycin 300 mg/ Sodium (Chloride) 50 mls @ 100 mls/hr IV Q24H [facility] Stop: 10/01/21 18:01 Last Admin: 09/17/21 20:00 Dose: 100 mls/hr Documented by: Daptomycin 300 mg/ Sodium (Chloride) 6 mls @ 180 mls/hr IVPUSH DAILY@1800 [facility] Last Admin: 10/14/21 17:29 Dose: 180 mls/hr Documented by: Ibuprofen (Ibuprofen 400 Mg Tab) 400 mg PO Q6H PRN PRN Reason: Pain (moderate 4-6) Last Admin: 09/30/21 12:29 Dose: 400 mg Documented by: Lisinopril (Lisinopril 10 Mg Tab) 10 mg PO DAILY [facility] Last Admin: 10/15/21 09:06 Dose: 10 mg Documented by: - Exam General: Reports: Alert, Oriented Neck: Reports: Supple Lungs: Reports: Clear to Auscultation, Normal Respiratory Effort Cardiovascular: Reports: Irregular Rhythm. Denies: Tachycardia GI/Abdominal Exam: Normal Bowel Sounds, Soft, Non-Tender Extremities: No Pedal Edema Skin: Reports: Other (sternal wound )
[2021-10-15] MEDS: Sodium Chloride 0.9% 10 ML Syringe FLUSH PRN (11:52)
[2021-10-15] MEDS ORDERED: SODIUM CHLORIDE 0.9% IVPUSH ONE (12:00)
[2021-10-15] MEDS ORDERED: DAPTOMYCIN IVPUSH ONE (12:00)
[2021-10-16] MEDS ORDERED: Lisinopril 10 MG Tab PO SCH (09:00)
== END 2021-10-15 13:35 | disposition home or self-care (01) | DRG 949 ==
LOC: DL.MS 12:30
PROVIDERS: ADMIT Family Medicine; ATTEND Hospitalist
DX: T81.49XD Infection following a procedure, other surgical site, subsequent encounter (principal); E43 Unspecified severe protein-calorie malnutrition; Z68.1 Body mass index [BMI] 19.9 or less, adult; M86.9 Osteomyelitis, unspecified; G89.29 Other chronic pain; M19.90 Unspecified osteoarthritis, unspecified site; Z20.822 Contact with and (suspected) exposure to COVID-19; M81.0 Age-related osteoporosis without current pathological fracture; M06.9 Rheumatoid arthritis, unspecified; M54.50 Low back pain, unspecified; H91.90 Unspecified hearing loss, unspecified ear; H54.7 Unspecified visual loss; I48.0 Paroxysmal atrial fibrillation; Z98.890 Other specified postprocedural states; Z87.891 Personal history of nicotine dependence; Z79.01 Long term (current) use of anticoagulants; Z95.2 Presence of prosthetic heart valve; Z79.82 Long term (current) use of aspirin; Z91.040 Latex allergy status; Z88.5 Allergy status to narcotic agent; Z91.013 Allergy to seafood; Z28.82 Immunization not carried out because of caregiver refusal
CPT/HCPCS: 36415; 80048; 80053; 82550; 85007; 85025; 85027; 85651; 86140; 97110-GO; 97110-GP; 97112-GP; 97116-GP; 97162-GP; 97165-GO; 97530-GO; 97530-GP; A9270-GY; J0878; J7512; U0002

== ENCOUNTER 2022-03-09 22:27 | Emergency (ER) | payer MEDICARE, MEDICAID ==
[2022-03-10] MEDS ORDERED: Metoprolol Succinate 25 MG Tab.ER PO ONE (00:17)
[2022-03-10 00:19] LABS: ANION GAP 12.1 mEq/L (7-13)
== END 2022-03-10 01:30 | disposition home or self-care (01) ==
LOC: DL.ED 22:27
DX: I11.9 Hypertensive heart disease without heart failure (principal); H21.02 Hyphema, left eye; F41.0 Panic disorder [episodic paroxysmal anxiety]; M19.90 Unspecified osteoarthritis, unspecified site; Z91.040 Latex allergy status; Z88.0 Allergy status to penicillin; Z88.5 Allergy status to narcotic agent; Z91.048 Other nonmedicinal substance allergy status; Z91.013 Allergy to seafood; Z79.01 Long term (current) use of anticoagulants; Z79.82 Long term (current) use of aspirin; Z79.899 Other long term (current) drug therapy; Z87.891 Personal history of nicotine dependence
CPT/HCPCS: 36415; 70450; 80053; 84484; 85025; 85610; 93005; 93010; 99284; A9270

== ENCOUNTER 2022-03-22 00:11 | Emergency (ER) | payer MEDICARE, MEDICAID ==
[2022-03-22] MEDS ORDERED: Sodium Chloride 0.9% 10 ML Syringe FLUSH PRN (02:06)
[2022-03-22] MEDS ORDERED: Labetalol 20 MG/4 ML Syringe IVPUSH ONE (02:06)
== END 2022-03-22 03:59 ==
LOC: DL.ED 00:11
DX: I10 Essential (primary) hypertension (principal); Z88.5 Allergy status to narcotic agent; Z88.0 Allergy status to penicillin; Z91.013 Allergy to seafood; Z91.040 Latex allergy status; Z91.048 Other nonmedicinal substance allergy status; Z79.82 Long term (current) use of aspirin; Z79.01 Long term (current) use of anticoagulants; Z79.899 Other long term (current) drug therapy
CPT/HCPCS: 36415; 80053; 85025; 96374; 99284-25; J3490